=== PATIENT | male | born 1950 | race Caucasian/White ===

== ENCOUNTER 2016-11-19 10:14 | Inpatient (IN) ==
[2016-11-19] MEDS ORDERED: ACETAMINOPHEN 325 MG TABLET PO ONE (10:47)
[2016-11-19] MEDS ORDERED: LIDOCAINE JEL 2% 1 TUBE 30GM TOPICAL ONE ×2 (10:54→14:18)
[2016-11-19] MEDS ORDERED: LIDOCAINE 2% URO-JET 5 ML JEL.PF.APP UR ONE ×2 (10:54→14:13)
--- NOTE | 2016-11-19 10:55 | Emergency Department Note ---
Weakness HPI <Rosendo Olivares R - Last Filed: 11/19/16 11:16> - General Source: EMS Mode of arrival: EMS Limitations: no limitations <Christal Murray - Last Filed: 11/19/16 14:16> - General Chief complaint: Weakness Stated complaint: Weakness Time Seen by Provider: 11/19/16 10:25 - History of Present Illness HPI Narrative: 65 year old male presents with global weakness x1 day. He was brought in by EMS. He states he has had increased frequency of urination and incontinence last night and today. He has had BPH and a TURP twice in the past. He denies abdominal pain and states the weakness is global. He is diabetic. He only takes Metformin and Gabapentin. He has pain in his right shoulder with movement and his neck is stiff as well. He denies shortness of breath. He has some chest tightness at times. No hx of [place] or CHF. He is unable to sit forward on exam. He also states he has more swelling in his legs. He denies falls. (Christal Murray) - Related Data Home Medications Medication Instructions Recorded Confirmed blood sugar diagnostic strips See Dose Instructions .ROUTE 01/03/15 07/19/16 .MEDSUPPLY compression stocking thigh medium NOTAPPLIC 01/03/15 07/19/16 lancets 28 gauge See Dose Instructions .ROUTE 01/03/15 07/19/16 .MEDSUPPLY metformin 500 mg tablet 500 mg PO BID tab 01/03/15 07/19/16 pravastatin 20 mg tablet 20 mg PO QHS tab 01/03/15 07/19/16 Gluc Pérez Dipo Ch/Darren Pérez/C/Tristin 1 each PO QDAY 01/16/15 07/19/16 [Glucosamine Chondroitin Caplet] omega-3 fatty acids-fish oil 2 cap PO QDAY 02/05/15 07/19/16 ferrous sulfate 325 mg (65 mg 325 mg PO QDAY 02/27/16 07/19/16 iron) tablet Previous Rx's Medication Instructions Recorded tamsulosin 0.4 mg capsule 0.4 mg PO Q24H #30 cap 02/27/16 Allergies Allergy/AdvReac Type Severity Reaction Status Date / Time tolterodine [From Detrol] Allergy Unknown Unknown Verified 07/19/16 13:21 Review of Systems All systems ED: reviewed and negative except as stated. <Christal Murray - Last Filed: 11/19/16 14:16> Past Medical History - Past Medical History Medical history: Reports: diabetes, other (obesity) Surgical history ED: Reports: prostatectomy (TURP) Psychiatric history: Reports: no psych history Family history: Reports: non-contributory - Social History smoking status: Former smoker Alcohol use: Reports: None Drug use: Reports: none <Christal Murray - Last Filed: 11/19/16 14:16> Physical Exam - General Limitations: no limitations General appearance: alert, in no apparent distress - Head Head exam: atraumatic - Eye Eye exam: Present: normal appearance. Absent: conjunctival injection - ENT ENT exam: mucous membranes dry - Neck Neck exam: Present: tenderness (paraspinal muscles tender). Absent: full ROM ( pain with forward flexion) - Chest Chest inspection: Present: normal inspection, symmetric chest wall rise - Respiratory Respiratory exam: Present: normal lung sounds bilaterally - Cardiovascular Cardiovascular exam: Present: regular rate, normal heart sounds - Abdominal Exam Abdominal exam: Present: soft, normal bowel sounds. Absent: tenderness - Extremities Exam Extremities exam: Present: other (right shoulder pain with ROM. Nontender to palpation. Full ROM) - Neurological Exam Neurological exam: Present: alert, oriented X3, CN II-XII intact - Psychiatric Psychiatric exam: Present: normal affect, normal mood - Skin Skin exam: Present: warm, dry, intact <Christal Murray - Last Filed: 11/19/16 14:16> Course - Reevaluation(s) Time: 10:55 <Rosendo Olivares - Last Filed: 11/19/16 11:16> <Christal Murray - Last Filed: 11/19/16 14:16> Course Narrative: 800mL out on straight catheter. Patient unsteady and dizzy when trying to ambulate. Dr. Suarez was consulted and will admit the patient (Christal Murray) - Reevaluation(s) Reevaluation #1: Patient seen and examined with PA. Patient appears clinically dry, suspect early urosepsis. Case discussed with PA, labs ordered including cultures, early antibiotics, postop void US and IVF bolus (Rosendo Olivares) Vital Signs Temperature 100.6 F H 11/19/16 10:14 Pulse Rate 79 11/19/16 10:14 Respiratory Rate 18 11/19/16 10:14 Blood Pressure 136/70 11/19/16 10:14 Pulse Oximetry (%) 96 11/19/16 10:14 Temperature 102 F H 11/19/16 11:40 Pulse Rate 80 11/19/16 13:32 Respiratory Rate 18 11/19/16 13:32 Blood Pressure 124/69 11/19/16 13:32 Pulse Oximetry (%) 100 11/19/16 13:32 Weakness - Lab Data Result diagrams: 11/19/16 10:50 11/19/16 10:50 <Rosendo Olivares R - Last Filed: 11/19/16 11:16> - Lab Data Lab results reviewed: Yes I reviewed the patient's lab results. Result diagrams: 11/19/16 10:50 11/19/16 10:50 - Radiology Data Radiology results reviewed: Yes I reviewed the patient's radiology results. <Murray,Christal - Last Filed: 11/19/16 14:16> - Lab Data Lab Results 11/19/16 11/19/16 11/19/16 Range/Units 10:50 10:50 10:50 WBC 17.2 H (4.5-11.0) K/mcL RBC 4.70 (4.50-5.90) M/mcL Hgb 14.6 (13.5-16.5) g/dL Hct 43.8 (41.0-55.0) % MCV 93.4 (80.0-100.0) fL MCH 31.2 (26.0-34.0) pg MCHC 33.4 (31.0-36.0) g/dL RDW 14.7 H (11.5-14.5) % Plt Count 248 (140-440) K/mcL MPV 10.6 H (7.4-10.4) fL Total Counted 100 Seg Neutrophils % 76 (38-78) % Band Neutrophils % Not Reportable Lymphocytes % 16 (15-49) % Monocytes % (Manual) 6 (1-12) % Eosinophils % (Manual) 1 (0-7) % Myelocytes % 1 H (0-0) % Platelet Estimate Normal (NORMAL) RBC Morphology Normal (NORMAL) ABG Methemoglobin 0.3 L (0.4-1.5) % VBG pH 7.34 (7.32-7.42) U VBG pCO2 50.9 (41.0-51.0) mmHg VBG pO2 35 (25-40) mmHg VBG HCO3 26.8 (24.0-28.0) mmol/L VBG Total CO2 28.4 (25.0-29.0) mmol/L VBG O2 Saturation 59.6 (40.0-70.0) % VBG Base Excess 0.3 (-2.0-2.0) VBG Lactic Acid Carboxyhemoglobin 4.0 H (0.0-1.5) % THgb Total Hemoglobin 14.3 (13.5-16.5) gm/dL O2 Delivery Level Not Reportable Sodium 135 (133-145) mmol/L Potassium 4.2 (3.3-5.1) mmol/L Chloride 98 (96-108) mmol/L Carbon Dioxide 24 (22-30) mmol/L Anion Gap 13.0 (8-16) BUN 15 (8-23) mg/dl Creatinine 1.2 (0.7-1.2) mg/dl GFR Calculation 63 Glucose 140 H (70-105) mg/dL Calcium 8.9 (8.6-10.4) mg/dl Total Bilirubin 1.4 H (0.0-1.0) mg/dL AST 11 (0-37) U/l ALT 14 (0-40) U/l Alkaline Phosphatase 49 (39-117) U/L Total Protein 7.1 (5.9-8.4) gm/dL Albumin 4.0 (3.2-5.2) gm/dL Globulin 3.1 (2.2-3.7) gm/dL Albumin/Globulin Ratio 1.3 (1.0-2.3) Urine Color Urine Appearance Urine pH (5.0-9.0) Ur Specific [place] (1.000-1.035) Urine Protein (NEG) mg/dL Urine Glucose (UA) (NEG) mg/dL Urine Ketones (NEG) mg/dL Urine Occult Blood (<0.03) mg/dL Urine Nitrate (NEG) Urine Bilirubin (NEG) mg/dL Urine Urobilinogen (NEG) mg/dL Ur Leukocyte Esterase (NEG) /uL Urine RBC (0-1) /hpf Urine WBC (0-4) /hpf Ur Squamous Epith Cells (0-4) /hpf Urine Bacteria (0) /hpf Urine Mucus (0) /hpf Ur Culture Indicated? 11/19/16 11/19/16 11/19/16 Range/Units 10:50 11:52 11:55 WBC (4.5-11.0) K/mcL RBC (4.50-5.90) M/mcL Hgb (13.5-16.5) g/dL Hct (41.0-55.0) % MCV (80.0-100.0) fL MCH (26.0-34.0) pg MCHC (31.0-36.0) g/dL RDW (11.5-14.5) % Plt Count (140-440) K/mcL MPV (7.4-10.4) fL Total Counted Seg Neutrophils % (38-78) % Band Neutrophils % Lymphocytes % (15-49) % Monocytes % (Manual) (1-12) % Eosinophils % (Manual) (0-7) % Myelocytes % (0-0) % Platelet Estimate (NORMAL) RBC Morphology (NORMAL) ABG Methemoglobin (0.4-1.5) % VBG pH (7.32-7.42) U VBG pCO2 (41.0-51.0) mmHg VBG pO2 (25-40) mmHg VBG HCO3 (24.0-28.0) mmol/L VBG Total CO2 (25.0-29.0) mmol/L VBG O2 Saturation (40.0-70.0) % VBG Base Excess (-2.0-2.0) VBG Lactic Acid TNP 1.1 Carboxyhemoglobin (0.0-1.5) % THgb Total Hemoglobin (13.5-16.5) gm/dL O2 Delivery Level Sodium (133-145) mmol/L Potassium (3.3-5.1) mmol/L Chloride (96-108) mmol/L Carbon Dioxide (22-30) mmol/L Anion Gap (8-16) BUN (8-23) mg/dl Creatinine (0.7-1.2) mg/dl GFR Calculation Glucose (70-105) mg/dL Calcium (8.6-10.4) mg/dl Total Bilirubin (0.0-1.0) mg/dL AST (0-37) U/l ALT (0-40) U/l Alkaline Phosphatase (39-117) U/L Total Protein (5.9-8.4) gm/dL Albumin (3.2-5.2) gm/dL Globulin (2.2-3.7) gm/dL Albumin/Globulin Ratio (1.0-2.3) Urine Color Yellow Urine Appearance Hazy Urine pH 7.0 (5.0-9.0) Ur Specific [place] 1.013 (1.000-1.035) Urine Protein 30 A (NEG) mg/dL Urine Glucose (UA) Negative (NEG) mg/dL Urine Ketones Neg (NEG) mg/dL Urine Occult Blood Neg (<0.03) mg/dL Urine Nitrate Neg (NEG) Urine Bilirubin Neg (NEG) mg/dL Urine Urobilinogen 2.0 A (NEG) mg/dL Ur Leukocyte Esterase 75 A (NEG) /uL Urine RBC 2 H (0-1) /hpf Urine WBC 44 H (0-4) /hpf Ur Squamous Epith Cells < 1 (0-4) /hpf Urine Bacteria Few A (0) /hpf Urine Mucus Few (0) /hpf Ur Culture Indicated? Yes - Radiology Data Negative for pneumonia (Christal Murray) Disposition <Rosendo Olivares - Last Filed: 11/19/16 11:16> <Christal Murray - Last Filed: 11/19/16 14:16> Clinical Impression: Urinary tract infection Disposition: Xfer As Inpt ([facility]) Condition: Fair Referrals: Tosha Vaca MD [Primary Care Provider] -
[2016-11-19] MEDS ORDERED: 0.9 % SODIUM CHLORIDE 1,000 ML IV ONE ×2 (10:57→12:08)
--- NOTE | 2016-11-19 11:07 | XRay Report ---
CLINICAL INFORMATION: Weakness. Fever. TECHNIQUE: Upright AP portable chest x-ray COMPARISON: 12/09/2015 FINDINGS: Suboptimal examination due to portable technique and patient obesity No focal pulmonary parenchymal infiltrate or mass. Heart size and vascularity are normal. No pulmonary edema. No pulmonary congestion. Daisy and mediastinum are negative. No detectable pleural fluid IMPRESSION: Negative AP portable chest x-ray Interpreted and Authenticated by: Francisco Javier Joy 11/19/16
[2016-11-19 11:20] LABS: ABG Methemoglobin 0.3 % (0.4-1.5); VBG Base Excess 0.3 (-2.0-2.0); VBG HCO3 26.8 mmol/L (24.0-28.0); VBG Oxygen Saturation 59.6 % (40.0-70.0); VBG PCO2 50.9 mmHg (41.0-51.0); VBG PH 7.34 U (7.32-7.42); VBG PO2 35 mmHg (25-40); VBG Total CO2 28.4 mmol/L (25.0-29.0)
[2016-11-19 11:23] LABS: Mean Cell Volume 93.4 fL (80.0-100.0); Mean Corpuscular HGB Conc 33.4 g/dL (31.0-36.0); Mean Corpuscular Hemoglobin 31.2 pg (26.0-34.0); Platelet Count 248 K/mcL (140-440); Red Cell Distribution Width 14.7 % (11.5-14.5)
[2016-11-19 11:44] LABS: ALT/SGPT 14 U/l (0-40); Albumin/Globulin Ratio 1.3 (1.0-2.3); Alkaline Phosphatase 49 U/L (39-117); Blood Urea Nitrogen 15 mg/dl (8-23)
[2016-11-19] MEDS ORDERED: cefTRIAXone 1 GM in DEXTROSE 5% IN WATER 50 ML IV ONE ×2 (11:44→16:02)
[2016-11-19 11:57] LABS: Eosinophils % (Manual) 1 % (0-7); Lymphocytes % 16 % (15-49); Monocytes % (Manual) 6 % (1-12); Myelocytes % 1 % (0-0); Platelet Estimate NORMAL (NORMAL); RBC Morphology NORMAL (NORMAL); Segmented Neutrophils % 76 % (38-78)
[2016-11-19] MEDS ORDERED: IBUPROFEN 800 MG TABLET PO ONE (12:07)
[2016-11-19] MEDS ORDERED: IBUPROFEN 200 MG TABLET PO ONE (12:18)
[2016-11-19] MEDS ORDERED: IBUPROFEN 600 MG TABLET PO ONE (12:18)
[2016-11-19 13:15] LABS: Appearance,Urine HAZY; Bacteria,Urine FEW /hpf (0); Bilirubin,Urine NEG (NEG); Color,Urine YELLOW; Glucose,Urine (UA) NEGATIVE (NEG); Leukocyte Esterase,Urine 75 /uL (NEG); Mucus,Urine FEW /hpf (0); Nitrate,Urine NEG (NEG); Protein,Urine 30 mg/dL (NEG); Specific Gravity,Urine 1.013 (1.000-1.035); Urine Blood NEG mg/dL (<0.03); Urine RBC 2 /hpf (0-1); Urine Squamous Epithelial Cell < 1 /hpf (0-4); Urine WBC 44 /hpf (0-4)
[2016-11-19] MEDS ORDERED: NALOXONE HCL 0.4 MG/ML VIAL IV PRN (14:57)
[2016-11-19] MEDS ORDERED: DEXTROSE 50% 50 ML VIAL IV PRN (14:57)
[2016-11-19] MEDS ORDERED: ONDANSETRON 4 MG/2 ML VIAL IV PRN (14:57)
[2016-11-19] MEDS ORDERED: MAGNESIUM HYDROXIDE 30 ML ORAL.SUSP PO PRN (14:57)
[2016-11-19] MEDS ORDERED: IPRATROPIUM/ALBUTEROL 3 ML AMPUL.NEB NEB PRN (14:57)
[2016-11-19] MEDS ORDERED: oxyCODONE HCL 5 MG TABLET PO PRN (14:57)
[2016-11-19] MEDS ORDERED: 0.9 % SODIUM CHLORIDE 1,000 ML IV SCH (15:15)
--- NOTE | 2016-11-19 15:45 | Internal Med History&Physical ---
Medical - H&P: HPI Patient information: Note initiated : 11/19/16 at 3:35 pm Service Date, if different from initiated Date: [] Patient: Edy Navarro a 65 y/o M admitted on 11/19/16 for Weakness. Chief Complaint: [] History of present illness: Mr. Navarro is a 65 year old male with h/o dm, obesity, daniella, presents to the ER with complaints of weakness x 1 day The patient has h/p bph, h/o need for intermittent self cath by self, he had laser photo vaporization by Dr Green, approx 6 months ago and since then has not had any major issues, accoriding to july note the patient was voiding ok and his post void residue was 0. Patient had stopped the flomax at that visit. Yesterday the patient noted that he was weak and unable to do much, this AM he was more weak and also had subective sensation of fevers. He noted that since a couple of nights he has not been able to pass urine well, he did not pass urine yesterday and then leaked urine in the bed last night. He deneis any cough, or shortness of breath, any blood in the urine, or any other symptom. In the ER his workup showed a wbc of 17K, hb 14, plat 248, basic panel ok, tim 1.4, cxr clear, ua abnl, leuk esterase positive, ekg sinus, with poor r wave progression, lad possible lafb, no change from previous. normal lacate, and he was febrile to 102 He was given some fluids and a 1gm of rocephin and admitted to the hospital for further management. Review of systems: CONSTITUTIONAL: No weight loss, ,. PResent fever, weakness and fatigue HEENT: Eyes: No visual loss, blurred vision, double vision or yellow sclerae. Ears, Nose, Throat: No hearing loss, sneezing, congestion, runny nose or sore throat. SKIN: No rash or itching. CARDIOVASCULAR: No chest pain, chest pressure or chest discomfort. No palpitations or edema. RESPIRATORY: No shortness of breath, cough or sputum. GASTROINTESTINAL: No nausea, vomiting or diarrhea or constipation. No abdominal pain or blood in stools No Mary. GENITOURINARY: urinary retention and incontinence reported. NEUROLOGICAL: No headache, dizziness, syncope, paralysis, tremors, numbness or tingling in the extremities. No change in bowel or bladder control. MUSCULOSKELETAL: No muscle, back pain, joint pain or stiffness. HEMATOLOGIC: No bleeding or bruising. No enlarged nodes PSYCHIATRIC: No depression or anxiety. ENDOCRINOLOGIC: No reports of sweating, cold or heat intolerance. No polyuria or polydipsia. ALLERGIES: No hives, eczema or rhinitis. Skin: No rash, no jaundice, cyanosis or pallor. Medical - H&P: [facility] Medical history: Medical History (Last Updated 11/19/16 @ 13:30 by Christal Murray PA-C) Apnea (Chronic) History of urinary tract infection (Chronic) Restless leg syndrome (Chronic) Diabetes mellitus, type II (Chronic) Edema (Chronic) Fungal infection (Chronic) Glaucoma (Chronic) Hyperlipidemia, mixed (Chronic) Hypertension (Chronic) Hypertrophy of prostate with urinary obstruction (Chronic 09/23/14) Hypokalemia (Chronic) Obesity (Chronic) Benign localized hyperplasia of prostate with urinary obstruction (Chronic) Pain in joint, shoulder region (Chronic) Osteoarthrosis, ankle and foot (Chronic) History of continuous positive airway pressure (CPAP) dependence (Chronic) UTI (urinary tract infection) (Chronic) E. coli infection (Chronic) Surgical history: Past Surgical History (Last Updated 09/30/16 @ 14:09 by [place]) History of toe surgery (Chronic) History of knee surgery (Chronic) S/P surgical manipulation of ankle joint (Chronic) History of photovaporization of prostate (Chronic 01/21/15) Pertinent family history: Family History Father Cardiac disease Malignant neoplasm Unknown Type 2 diabetes mellitus Social history: lives with , non smoker occasional etoh no drug use reported. Medical - H&P: Meds Home Medications Medication Instructions Recorded Confirmed Type blood sugar diagnostic strips See Dose Instructions .ROUTE 01/03/15 11/19/16 History .MEDSUPPLY compression stocking thigh medium 0 applic NOTAPPLIC DAILY 01/03/15 11/19/16 History lancets 28 gauge See Dose Instructions .ROUTE 01/03/15 11/19/16 History .MEDSUPPLY metformin 500 mg tablet 500 mg PO BID tab 01/03/15 11/19/16 History Gluc Pérez Dipo Ch/Darren Pérez/C/Tristin 1 each PO QDAY 01/16/15 11/19/16 History [Glucosamine Chondroitin Caplet] omega-3 fatty acids-fish oil 2 cap PO QDAY 02/05/15 11/19/16 History tamsulosin 0.4 mg capsule 0.4 mg PO Q24H #30 cap 02/27/16 11/19/16 Rx Allergies Allergy/AdvReac Type Severity Reaction Status Date / Time tolterodine [From Detrol] Allergy Unknown Other Verified 11/19/16 15:26 Medical - H&P: Exam - Constitutional Vitals: Temp Pulse Resp BP Pulse Ox 102 F H 80 16 120/64 95 11/19/16 11:40 11/19/16 13:49 11/19/16 14:32 11/19/16 14:32 11/19/16 13:49 Exam: GENERAL: The patient is a well-developed, well-nourished in no apparent distress. Is alert and oriented x3. VITAL SIGNS: Reviewed and as noted elsewhere. HEENT: Head is normocephalic and atraumatic. Extraocular muscles are intact. Pupils are equal, round, and reactive to light. Nares appeared normal. Mouth appears any without lesions. Mucous membranes are dry. NECK: Normal to inspection, Supple, No lymphadenopathy or thyromegaly. LUNGS: Air entry equal on both sides, no wheezing, crackles or rhonchi noted. No accessory muscles of respiration HEART: Regular rate and rhythm normal, S1 and S2 heard, no Gallop, S3 or Rub Noted, No Gross murmur heard. ABDOMEN: Soft, nontender, and nondistended. Positive bowel sounds. No hepatosplenomegaly was noted. large pannus, no cva tenderness. EXTREMITIES: No cyanosis, clubbing, rash, lesions or edema. NEUROLOGIC: Cranial nerves II through XII are grossly intact. Motor and Sensory System Grossly Intact PSYCHIATRIC: Normal affect, Normal Mood. Appropriate Behavior. SKIN: No ulceration or wounds noted, No jaundice, No rash noted. Medical - H&P: Reslt - Labs CBC & Chem 7: 11/19/16 10:50 11/19/16 10:50 Medical - H&P: A/P - Narrative A/P Narrative: A/P Sepsis : Due to UTI, BP stable, lactic acid is normal, IV fluids for now, treat UTI UTI: await culture, treat with rocephin, no cva tenderness, Get UGS renal to look for any obvious pathology. Urinary retention/ BPH: Discussed with Dr Green, resume flomax bid, pt will need to have negrete in place and voiding trial in the urology clinc DM: MOnitor fs, hold home meds sliding scale isulin for now. DANIELLA: cpap at night, he notes he uses 20 cms of h2o pressure, advised to see if he can get his own device. DVT hep sq Diet diabetic Full code.
[2016-11-19] MEDS: TAMSULOSIN 0.4 MG CAPSULE PO SCH (16:11)
[2016-11-19] MEDS: INSULIN LISPRO 1 UNIT/0.01 ML UNIT SQ SCH ×2 (16:13→21:23)
--- NOTE | 2016-11-19 16:44 | Ultrasound Report ---
CLINICAL INFORMATION: Urinary tract infection. Diabetes. Previous prostate surgery. TECHNIQUE: Grayscale and color flow Doppler spectral imaging COMPARISON: None. FINDINGS: Right kidney measures 14.1 x 7.0 x 6.4 cm. There are multiple renal cysts. There are least four cysts. The largest cyst is made pole and lateral and measures 9.1 x 9.4 x 10.2 cm. No solid mass. No hydronephrosis. No detectable calculi. Renal cortex appears somewhat echogenic consistent with medical renal disease. Left kidney measures 14.6 x 6.7 x 5.5 cm. There are multiple renal cysts. Largest cyst is upper pole and measures 6.1 x 6.0 x 5.5 cm. No detectable solid mass. No hydronephrosis. No detectable calculi. Renal cortex appears somewhat echogenic consistent with medical renal disease. There is a Dietz catheter within the urinary bladder. Estimated prostatic volume measures 54 mL IMPRESSION: 1. Multiple renal cysts 2. No hydronephrosis. No detectable calculi 3. Renal cortex appears somewhat echogenic bilaterally consistent with medical renal disease. Interpreted and Authenticated by: Francisco Javier Joy 11/19/16
[2016-11-19] MEDS: 0.9 % SODIUM CHLORIDE 1,000 ML IV SCH ×2 (17:08→20:00)
[2016-11-19] MEDS ORDERED: TAMSULOSIN 0.4 MG CAPSULE PO SCH (21:00)
[2016-11-19] MEDS: 0.9 % SODIUM CHLORIDE 10 ML SYRINGE IV SCH (21:32)
[2016-11-19] MEDS: HEPARIN 5,000 UNIT/ML VIAL SQ SCH (21:32)
[2016-11-20] MEDS: TAMSULOSIN 0.4 MG CAPSULE PO SCH ×3 (00:07→20:35)
[2016-11-20] MEDS: 0.9 % SODIUM CHLORIDE 1,000 ML IV SCH ×4 (05:13→20:30)
[2016-11-20] MEDS: 0.9 % SODIUM CHLORIDE 10 ML SYRINGE IV SCH ×3 (05:13→20:40)
[2016-11-20 05:54] LABS: Basophils # (Auto) 0.1 K/mcL (0.0-0.3); Basophils % (Auto) 0.3 % (0.0-2.0); Eosinophils # (Auto) 0 K/mcL (0.0-0.7); Eosinophils % (Auto) 0.3 % (0.0-7.0); Granulocytes % (Auto) 82.6 % (38.0-78.0); Lymphocytes # (Auto) 1.6 K/mcL (1.5-4.8); Lymphocytes % (Auto) 9.4 % (15.5-49.0); Mean Cell Volume 94.2 fL (80.0-100.0); Mean Corpuscular HGB Conc 33.1 g/dL (31.0-36.0); Mean Corpuscular Hemoglobin 31.2 pg (26.0-34.0); Monocytes # (Auto) 1.2 K/mcL (0.1-0.9); Monocytes % (Auto) 7.4 % (1.0-12.0); Platelet Count 212 K/mcL (140-440); RBC 4.33 M/mcL (4.50-5.90); Red Cell Distribution Width 14.8 % (11.5-14.5)
[2016-11-20 06:12] LABS: ALT/SGPT 14 U/l (0-40); Albumin 3.5 gm/dL (3.2-5.2); Albumin/Globulin Ratio 1.2 (1.0-2.3); Alkaline Phosphatase 44 U/L (39-117); Bilirubin,Direct 0.3 mg/dL (0.0-0.3); Blood Urea Nitrogen 13 mg/dl (8-23); Gamma Glutamyl Transpeptidase 20 U/L (8-61); Magnesium 1.8 mg/dL (1.6-2.5); Uric Acid 5.9 mg/dL (2.5-8.0)
[2016-11-20] MEDS: INSULIN LISPRO 1 UNIT/0.01 ML UNIT SQ SCH ×4 (07:26→20:40)
[2016-11-20] MEDS: ACETAMINOPHEN 325 MG TABLET PO PRN ×3 (07:30→20:44)
[2016-11-20] MEDS: FISH OIL 1,000 MG CAPSULE PO SCH (07:31)
[2016-11-20] MEDS: HEPARIN 5,000 UNIT/ML VIAL SQ SCH ×2 (07:31→20:35)
[2016-11-20] MEDS: GLUCOSAMINE/CHONDROITIN SULF A 1 CAP CAPSULE PO SCH (07:31)
[2016-11-20] MEDS ORDERED: cefTRIAXone 1 GM in DEXTROSE 5% IN WATER 50 ML IV SCH (09:00)
[2016-11-20] MEDS: cefTRIAXone 2 GM in DEXTROSE 5% IN WATER 50 ML IV SCH (09:09)
--- NOTE | 2016-11-20 11:22 | Internal Med Progress Note ---
Medical - PN: Subj Patient information: Note initiated : 11/20/16 at 11:20 am Service Date, if different from initiated Date: [] Patient: Edy Navarro a 65 y/o M admitted on 11/19/16 for Weakness. Chief Complaint: [] Interval history: Mr. Navarro is a 65 year old male with h/o dm, obesity, daniella, presents to the ER with complaints of weakness x 1 day The patient has h/p bph, h/o need for intermittent self cath by self, he had laser photo vaporization by Dr Rossi, approx 6 months ago and since then has not had any major issues, accoriding to july note the patient was voiding ok and his post void residue was 0. Patient had stopped the flomax at that visit. Yesterday the patient noted that he was weak and unable to do much, this AM he was more weak and also had subective sensation of fevers. He noted that since a couple of nights he has not been able to pass urine well, he did not pass urine yesterday and then leaked urine in the bed last night. He deneis any cough, or shortness of breath, any blood in the urine, or any other symptom. In the ER his workup showed a wbc of 17K, hb 14, plat 248, basic panel ok, tim 1.4, cxr clear, ua abnl, leuk esterase positive, ekg sinus, with poor r wave progression, lad possible lafb, no change from previous. normal lacate, and he was febrile to 102 He was given some fluids and a 1gm of rocephin and admitted to the hospital for further management. 11/20: Pt seen examined, no acute overnight events, tolerating po ok, but still feels weak wbc improved but not much, no other issues. He was able to participate in PT discussed pt with Dr rossi, to continue flomax bid and void trial in clinc in 2 weeks. continue to treat infection. Pertinent ROS: Denies headache, dizziness Denies chest pain, palpitations Denies cough or shortness of breath Denies abdominal pain, nausea or vomiting. - Constitutional Vitals: Vital Signs Temp Pulse Resp BP Pulse Ox 97.1 F 58 L 20 119/58 93 11/20/16 11:17 11/20/16 08:00 11/20/16 11:11/20/16 11:17 11/20/16 11:17 Period Temp Pulse Resp BP Sys/Mayes Pulse Ox Last 24 Hr 97.0 F-97.6 F 58-87 20-20 119-135/58-75 93-97 Intake and Output 11/19/16 11/20/16 11/20/16 21:59 05:59 13:59 Intake Total 1550 / 1550 400 / 400 1120 / 1120 Output Total 2100 / 2100 800 / 800 Balance -550 / -550 -400 / -400 1120 / 1120 Weight 355 lb Intake & Output: Intake & Output 11/19/16 11/20/16 11/20/16 21:59 05:59 13:59 Intake Total 1550 / 1550 400 / 400 1120 / 1120 Output Total 2100 / 2100 800 / 800 Balance -550 / -550 -400 / -400 1120 / 1120 Weight 355 lb Intake: IV 1000 / 1000 1000 / 1000 Sodium Chloride 0.9% 1, 1000 / 1000 1000 / 1000 000 ml @ 84 mls/hr IV . [id number] [facility] Rx#:[id number] Oral 550 / 550 400 / 400 120 / 120 Output: Urine Catheter Amount 500 / 500 Void Amount 1600 / 1600 800 / 800 Other: Meal Dinner Breakfast Percent of Meal Consumed 100% 100% Feeding Ability Independent # Bowel Movements 1 Exam: Constitutional; Afebrile, cooperative, alert, not in distress. morbidly obese. Eyes- No icterus, , No periorbital swelling Ears- Ext ear normal, hearing normal to conversation. Neck- Midline trachea, supple Respiratory system: Air Entry equal on both sides, No crackles or wheezing, no rhonchi. CVS- Rate rhythm regular, S1,S2 heard, no gallop, no rub. 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 Medical - PN: Obj Da - Labs CBC & Chem 7: 11/20/16 04:47 11/20/16 04:47 Labs: Abnormal Lab Results 11/20/16 11/20/16 04:47 04:47 WBC 16.9 H RBC 4.33 L Hct 40.8 L RDW 14.8 H MPV 10.6 H Gran % 82.6 H Lymph % (Auto) 9.4 L Gran # 14.0 H [place] # (Auto) 1.2 H Carbon Dioxide 20 L Glucose 144 H Calcium 8.5 L Phosphorus 2.3 L Total Bilirubin 1.3 H Meds: Medications Acetaminophen (Tylenol) 650 mg PO Q6HP PRN PRN Reason: PAIN/FEVER > 101 Last Admin: 11/20/16 07:30 Dose: 650 mg Albuterol/Ipratropium (Duoneb) 3 ml NEB Q4HRT PRN PRN Reason: Shortness Of Breath Or Wheezing Dextrose (Dextrose 50%) 0 ml IV UD PRN PRN Reason: Hypoglycemia Diagnostic Test (Pha) (Accu-Chek) 1 each FS [facility] Last Admin: 11/20/16 07:25 Dose: 1 each Fish Oil (Fish Oil) 2,000 mg PO DAILY [facility] Last Admin: 11/20/16 07:31 Dose: 2,000 mg Glucosamine/Chondroitin (Glucosamine-Chondroitin Cap) 1 cap PO DAILY [facility] Last Admin: 11/20/16 07:31 Dose: 1 cap Heparin Sodium (Porcine) (Heparin) 5,000 unit SQ Q12 [facility] Last Admin: 11/20/16 07:31 Dose: 5,000 unit Sodium Chloride (Sodium Chloride 0.9%) 1,000 mls @ 84 mls/hr IV .[id number] [facility] Stop: 11/21/16 02:39 Last Admin: 11/20/16 09:12 Dose: 84 mls/hr Ceftriaxone Sodium 2 gm/ (Dextrose) 50 mls @ 100 mls/hr IV DAILY [facility] [place] Last Admin: 11/20/16 09:09 Dose: 100 mls/hr Insulin Human Lispro (Humalog) 0 unit SQ [facility] PRN Reason: Protocol Last Admin: 11/20/16 07:26 Dose: Not Given Magnesium Hydroxide (Milk Of Magnesia) 30 ml PO DAILYP PRN PRN Reason: Constipation Naloxone HCl (Narcan) 0.1 mg IV Q2MIN PRN PRN Reason: Opiate Reversal Ondansetron HCl (Zofran) 4 mg IV Q6HP PRN PRN Reason: Nausea And Vomiting Oxycodone HCl (Roxicodone) 5 mg PO Q4HP PRN PRN Reason: Pain Sodium Chloride (Saline Flush) 10 ml IV Q8 [facility] Last Admin: 11/20/16 05:13 Dose: Not Given Tamsulosin HCl (Flomax) 0.4 mg PO BID JAMES Last Admin: 11/20/16 07:30 Dose: 0.4 mg Medical - PN: A/P - Time Spent With Patient Total time spent is greater than 50% in coordination of care (as documented) at patient's floor/unit and/or counseling patient: - Narrative A/P Narrative: A/P Narrative: Sepsis : Due to UTI, BP stable, lactic acid is normal, on iv fluids, clinically improving. UTI: await culture, treat with 2 g rocephin, no cva tenderness, renal usg is negative. Urinary retention/ BPH: Discussed with Dr Rossi, resume flomax bid, pt will need to have negrete in place and voiding trial in the urology clinc DM: MOnitor fs, hold home meds sliding scale isulin for now. glucose stable. DANIELLA: cpap at night, he notes he uses 20 cms of h2o pressure, advised to see if he can get his own device. DVT hep sq Diet diabetic Full code. Medical - PN: Qual - Stroke Symptom Onset Unknown: No - VTE Deep Vein Thrombosis/Pulmonary Embolism Present on Admission: No
[2016-11-21] MEDS: 0.9 % SODIUM CHLORIDE 10 ML SYRINGE IV SCH ×3 (05:33→21:13)
[2016-11-21 06:06] LABS: Basophils # (Auto) 0 K/mcL (0.0-0.3); Basophils % (Auto) 0.3 % (0.0-2.0); Eosinophils # (Auto) 0.3 K/mcL (0.0-0.7); Granulocytes % (Auto) 73.1 % (38.0-78.0); Lymphocytes # (Auto) 1.9 K/mcL (1.5-4.8); Lymphocytes % (Auto) 16.6 % (15.5-49.0); Mean Cell Volume 94.6 fL (80.0-100.0); Mean Corpuscular HGB Conc 33.3 g/dL (31.0-36.0); Mean Corpuscular Hemoglobin 31.5 pg (26.0-34.0); Monocytes # (Auto) 0.8 K/mcL (0.1-0.9); Platelet Count 212 K/mcL (140-440); Red Cell Distribution Width 14.9 % (11.5-14.5)
[2016-11-21 06:29] LABS: ALT/SGPT 13 U/l (0-40); Albumin 3.3 gm/dL (3.2-5.2); Albumin/Globulin Ratio 1.1 (1.0-2.3); Alkaline Phosphatase 41 U/L (39-117); Bilirubin,Direct < 0.2 mg/dL (0.0-0.3); Blood Urea Nitrogen 13 mg/dl (8-23); Gamma Glutamyl Transpeptidase 21 U/L (8-61); Magnesium 1.9 mg/dL (1.6-2.5); Uric Acid 5.5 mg/dL (2.5-8.0)
[2016-11-21] MEDS: GLUCOSAMINE/CHONDROITIN SULF A 1 CAP CAPSULE PO SCH (09:15)
[2016-11-21] MEDS: HEPARIN 5,000 UNIT/ML VIAL SQ SCH ×2 (09:15→20:27)
[2016-11-21] MEDS: TAMSULOSIN 0.4 MG CAPSULE PO SCH ×2 (09:15→20:27)
[2016-11-21] MEDS: cefTRIAXone 2 GM in DEXTROSE 5% IN WATER 50 ML IV SCH (09:15)
[2016-11-21] MEDS: FISH OIL 1,000 MG CAPSULE PO SCH (09:15)
[2016-11-21] MEDS: INSULIN LISPRO 1 UNIT/0.01 ML UNIT SQ SCH ×4 (09:16→20:27)
--- NOTE | 2016-11-21 13:20 | Internal Med Progress Note ---
Medical - PN: Subj Patient information: Note initiated : 11/21/16 at 1:18 pm Service Date, if different from initiated Date: [] Patient: Edy Navarro a 65 y/o M admitted on 11/19/16 for Weakness. Chief Complaint: [] Interval history: Mr. Navarro is a 65 year old male with h/o dm, obesity, daniella, presents to the ER with complaints of weakness x 1 day The patient has h/p bph, h/o need for intermittent self cath by self, he had laser photo vaporization by Dr Rossi, approx 6 months ago and since then has not had any major issues, accoriding to july note the patient was voiding ok and his post void residue was 0. Patient had stopped the flomax at that visit. Yesterday the patient noted that he was weak and unable to do much, this AM he was more weak and also had subective sensation of fevers. He noted that since a couple of nights he has not been able to pass urine well, he did not pass urine yesterday and then leaked urine in the bed last night. He deneis any cough, or shortness of breath, any blood in the urine, or any other symptom. In the ER his workup showed a wbc of 17K, hb 14, plat 248, basic panel ok, tim 1.4, cxr clear, ua abnl, leuk esterase positive, ekg sinus, with poor r wave progression, lad possible lafb, no change from previous. normal lacate, and he was febrile to 102 He was given some fluids and a 1gm of rocephin and admitted to the hospital for further management. 11/20: Pt seen examined, no acute overnight events, tolerating po ok, but still feels weak wbc improved but not much, no other issues. He was able to participate in PT discussed pt with Dr rossi, to continue flomax bid and void trial in [facility]inc in 2 weeks. continue to treat infection. 11/21: Pt seen examined, labs reviwed with him patient seems to be getting better albiet slowly, his wbc is improved, his weakness is better he denies any other complaints, tolerating po well, sleeping in bed comfortably Pertinent ROS: Denies headache, dizziness Denies chest pain, palpitations Denies cough or shortness of breath Denies abdominal pain, nausea or vomiting. - Constitutional Vitals: Vital Signs Temp Pulse Resp BP Pulse Ox 97.7 F 70 18 146/72 97 11/21/16 12:00 11/21/16 12:00 11/21/16 12:00 11/21/16 12:00 11/21/16 12:00 Period Temp Pulse Resp BP Sys/Mayes Pulse Ox Last 24 Hr 97.5 F-99.0 F 67-95 16-20 132-153/72-91 93-97 Intake and Output 11/20/16 11/21/16 11/21/16 21:59 05:59 13:59 Intake Total 949 / 949 325 / 325 1040 / 1040 Output Total 1300 / 1300 900 / 900 1400 / 1400 Balance -351 / -351 -575 / -575 -360 / -360 Weight 350 lb 8 oz Intake & Output: Intake & Output 11/20/16 11/21/16 11/21/16 21:59 05:59 13:59 Intake Total 949 / 949 325 / 325 1040 / 1040 Output Total 1300 / 1300 900 / 900 1400 / 1400 Balance -351 / -351 -575 / -575 -360 / -360 Weight 350 lb 8 oz Intake: IV 949 / 949 Sodium Chloride 0.9% 1, 949 / 949 000 ml @ 84 mls/hr IV . [id number] [facility] Rx#:[id number] Oral 325 / 325 640 / 640 GI Tube Flush 400 / 400 Output: Urine Catheter Amount 1300 / 1300 900 / 900 1400 / 1400 Other: Meal Lunch Percent of Meal Consumed 100% Feeding Ability Independent # Bowel Movements 1 1 # of times incontinent of 1 Bowels Exam: Constitutional; Afebrile, cooperative, alert, not in distress. morbidly obese Eyes- No icterus, , No periorbital swelling Ears- Ext ear normal, hearing normal to conversation. Neck- Midline trachea, supple Respiratory system: Air Entry equal on both sides, No crackles or wheezing, no rhonchi. CVS- Rate rhythm regular, S1,S2 heard, no gallop, no rub. Abdomen- Soft nontender abdomen, no organomegaly, no tenderness, no guarding or rigidity, CAUSE ANALYST- AOOx3, moving all extremities, no gross focal deficit noted. Medical - PN: Obj Da - Labs CBC & Chem 7: 11/21/16 05:05 11/21/16 05:05 Labs: Abnormal Lab Results 11/21/16 11/21/16 11/20/16 05:05 05:05 04:47 WBC 11.4 H RBC 4.10 L Hgb 12.9 L Hct 38.8 L RDW 14.9 H MPV Gran % Lymph % (Auto) Gran # 8.3 H Eddy # (Auto) Carbon Dioxide 20 L 20 L Glucose 118 H 144 H Calcium 8.3 L 8.5 L Phosphorus 2.2 L 2.3 L Total Bilirubin 1.3 H 11/20/16 04:47 WBC 16.9 H RBC 4.33 L Hgb Hct 40.8 L RDW 14.8 H MPV 10.6 H Gran % 82.6 H Lymph % (Auto) 9.4 L Gran # 14.0 H Eddy # (Auto) 1.2 H Carbon Dioxide Glucose Calcium Phosphorus Total Bilirubin Meds: Medications Acetaminophen (Tylenol) 650 mg PO Q6HP PRN PRN Reason: PAIN/FEVER > 101 Last Admin: 11/20/16 20:44 Dose: 650 mg Albuterol/Ipratropium (Duoneb) 3 ml NEB Q4HRT PRN PRN Reason: Shortness Of Breath Or Wheezing Dextrose (Dextrose 50%) 0 ml IV UD PRN PRN Reason: Hypoglycemia Diagnostic Test (Pha) (Accu-Chek) 1 each FS ACHS [facility] Last Admin: 11/21/16 12:26 Dose: 1 each Fish Oil (Fish Oil) 2,000 mg PO DAILY JAMES Last Admin: 11/21/16 09:15 Dose: 2,000 mg Glucosamine/Chondroitin (Glucosamine-Chondroitin Cap) 1 cap PO DAILY JAMES Last Admin: 11/21/16 09:15 Dose: 1 cap Heparin Sodium (Porcine) (Heparin) 5,000 unit SQ Q12 JAMES Last Admin: 11/21/16 09:15 Dose: 5,000 unit Ceftriaxone Sodium 2 gm/ (Dextrose) 50 mls @ 100 mls/hr IV DAILY [facility] Last Admin: 11/21/16 09:15 Dose: 100 mls/hr Insulin Human Lispro (Humalog) 0 unit SQ ACHS JAMSE PRN Reason: Protocol Last Admin: 11/21/16 12:27 Dose: Not Given Magnesium Hydroxide (Milk Of Magnesia) 30 ml PO DAILYP PRN PRN Reason: Constipation Last Admin: 11/21/16 09:15 Dose: 30 ml Naloxone HCl (Narcan) 0.1 mg IV Q2MIN PRN PRN Reason: Opiate Reversal Ondansetron HCl (Zofran) 4 mg IV Q6HP PRN PRN Reason: Nausea And Vomiting Oxycodone HCl (Roxicodone) 5 mg PO Q4HP PRN PRN Reason: Pain Sodium Chloride (Saline Flush) 10 ml IV Q8 [facility] Last Admin: 11/21/16 05:33 Dose: Not Given Tamsulosin HCl (Flomax) 0.4 mg PO BID [facility] Last Admin: 11/21/16 09:15 Dose: 0.4 mg Medical - PN: A/P - Time Spent With Patient Total time spent is greater than 50% in coordination of care (as documented) at patient's floor/unit and/or counseling patient: - Narrative A/P Narrative: A/P Narrative: Sepsis : Due to UTI, BP stable, lactic acid is normal, on iv fluids, clinically improving. UTI: treat with 2 g rocephin, ecoli sensitive to ceftriaxone, can go home on keflex. Urinary retention/ BPH: Discussed with Dr Rossi, resume flomax bid, pt will need to have negrete in place and voiding trial in the urology clinic DM: Monitor fs, hold home meds sliding scale isulin for now. glucose stable. DANIELLA: cpap at night, he notes he uses 20 cms of h2o pressure, advised to see if he can get his own device. DVT hep sq Diet diabetic Full code. Medical - PN: Qual - Stroke Symptom Onset Unknown: No - VTE Deep Vein Thrombosis/Pulmonary Embolism Present on Admission: No
[2016-11-22] MEDS: 0.9 % SODIUM CHLORIDE 10 ML SYRINGE IV SCH (04:59)
[2016-11-22 06:21] LABS: Basophils # (Auto) 0 K/mcL (0.0-0.3); Basophils % (Auto) 0.4 % (0.0-2.0); Eosinophils # (Auto) 0.4 K/mcL (0.0-0.7); Eosinophils % (Auto) 4.3 % (0.0-7.0); Granulocytes % (Auto) 65.2 % (38.0-78.0); Lymphocytes # (Auto) 2.1 K/mcL (1.5-4.8); Lymphocytes % (Auto) 21.8 % (15.5-49.0); Mean Cell Volume 94.3 fL (80.0-100.0); Mean Corpuscular Hemoglobin 31.2 pg (26.0-34.0); Monocytes # (Auto) 0.8 K/mcL (0.1-0.9); Monocytes % (Auto) 8.3 % (1.0-12.0); Platelet Count 252 K/mcL (140-440); RBC 4.38 M/mcL (4.50-5.90); Red Cell Distribution Width 14.3 % (11.5-14.5)
[2016-11-22 06:52] LABS: ALT/SGPT 12 U/l (0-40); Albumin 3.7 gm/dL (3.2-5.2); Albumin/Globulin Ratio 1.2 (1.0-2.3); Alkaline Phosphatase 61 U/L (39-117); Bilirubin,Direct < 0.2 mg/dL (0.0-0.3); Blood Urea Nitrogen 12 mg/dl (8-23); Gamma Glutamyl Transpeptidase 24 U/L (8-61); Uric Acid 5.7 mg/dL (2.5-8.0)
[2016-11-22] MEDS: HEPARIN 5,000 UNIT/ML VIAL SQ SCH (08:42)
[2016-11-22] MEDS: FISH OIL 1,000 MG CAPSULE PO SCH (08:42)
[2016-11-22] MEDS: GLUCOSAMINE/CHONDROITIN SULF A 1 CAP CAPSULE PO SCH (08:43)
[2016-11-22] MEDS: TAMSULOSIN 0.4 MG CAPSULE PO SCH (08:43)
[2016-11-22] MEDS: INSULIN LISPRO 1 UNIT/0.01 ML UNIT SQ SCH ×2 (08:43→11:38)
[2016-11-22] MEDS ORDERED: CIPROFLOXACIN 500 MG TABLET PO SCH (09:00)
[2016-11-22] MEDS: cefTRIAXone 2 GM in DEXTROSE 5% IN WATER 50 ML IV SCH (09:21)
--- NOTE | 2016-11-22 10:27 | Discharge Summary ---
Medical - DS: Prov Patient information: Note initiated : 11/22/16 at 10:27 am Patient: Edy Navarro 65 y/o M admitted on 11/19/16 for Weakness. Date of admission: 11/19/16 14:48 Discharge date: 11/22/16 Primary care physician: Tosha Vaca Number [phone] Admitting clinician: Sadia Suarez Attending physician on discharge: Angeles Chavez Medical - DS: Meds - Discharge Medications Prescriptions: Ciprofloxacin [Cipro] 500 mg PO BID #14 tablet Tamsulosin [Flomax] 0.4 mg PO BID #60 capsule Active and Home Medications: Discharge medications: Ciprofloxacin 500 mg p.o. twice daily for 7 more days. Flomax 0.4 mg p.o. twice daily until follow-up with Dr. Green Tylenol 650 mg every 6 hours as needed Fish oil 1000 mg 2 caps daily Metformin 500 mg p.o. twice daily Gabapentin 900 mg at 7 AM and 2 PM Gabapentin 600 mg at bedtime Dietz catheter should remain in place for approximately 10 more days. Follow-up with Dr. Green for voiding trial. CPAP should be used nightly. Previous home Medications: metformin 500 mg tablet 500 mg PO BID tab 01/03/15 [History Confirmed 11/19/16 Last Taken 11/18/16] omega-3 fatty acids-fish oil 2 cap PO QDAY 02/05/15 [History Confirmed 11/19/16 Last Taken 11/18/16] was not taking tamsulosin 0.4 mg capsule 0.4 mg PO Q24H #30 cap 02/27/16 [Rx Confirmed 11/19/16 Last Taken 11/18/16] Gabapentin [Neurontin] 600 mg PO HS 11/19/16 [History Confirmed 11/19/16 Last Taken 11/18/16] Gabapentin [Neurontin] 900 mg PO BID@0700,1400 11/19/16 [History Confirmed 11/19 Last Taken 11/18/16] Medical - DS: Hosp Hospital course: Mr. Navarro is a 65 year old M November 19, 2016: History of present illness: Mr. Navraro is a 65 year old male with h/o dm, obesity, daniella, presents to the ER with complaints of weakness x 1 day . The patient has h/p bph, h/o need for intermittent self cath by self, he had laser photo vaporization by Dr Green, approx 6 months ago and since then has not had any major issues, according to july note the patient was voiding ok and his post void residue was 0. Patient had stopped the flomax at that visit. Yesterday the patient noted that he was weak and unable to do much, this AM he was more weak and also had subective sensation of fevers. He noted that since a couple of nights he has not been able to pass urine well, he did not pass urine yesterday and then leaked urine in the bed last night. He deneis any cough, or shortness of breath, any blood in the urine, or any other symptom. In the ER his workup showed a wbc of 17K, hb 14, plat 248, basic panel ok, tim 1.4, cxr clear, ua abnl, leuk esterase positive, ekg sinus, with poor r wave progression, lad possible lafb, no change from previous. normal lacate, and he was febrile to 102 He was given some fluids and a 1gm of rocephin and admitted to the hospital for further management. November 22, 2016: Hospital course: This patient was admitted with sepsis, urinary retention, UTI. He was also struggling with generalized weakness. He has not been treated with 3 days of IV antibiotics, and is feeling better. He is now ambulating with a walker in the hallway. His case was reviewed with Dr. Green, who recommended that he resume his Flomax, and keep the catheter in place for approximately 2 weeks. Afterwards, a voiding trial should be attempted. Today, the patient says he is feeling fine. He denies fever or chills, chest pain or palpitations, shortness of breath, GI symptoms. He thinks he can manage the Dietz catheter at home. Urine culture grew E. coli which is resistant to Augmentin and Bactrim, but sensitive to cephalosporins and Floxin's. -Blood pressures have continued to run a bit high, ranging from 122-159/58-97. Exam: This is an overweight white male, in no acute distress. Cardiac exam shows regular rate and rhythm. Lungs are clear to auscultation. Abdomen is markedly protuberant, but otherwise soft and nontender. Dietz catheter is draining clear yellow urine. Extremities: Show no significant edema. Neurologic exam is grossly nonfocal. Assessment and plan: #1. Sepsis : Due to UTI, resolved. #2. UTI: Treated with IV Rocephin. Patient is changed over to oral ciprofloxacin at this time. -Continue Dietz catheter for his urinary retention. Follow-up with Dr. Green in approximately 10 days. -Resume Flomax 0.4 mg p.o. twice daily. #3. DM: -Glucose has been reasonably well controlled while here. Continue metformin. Continue diabetic diet. #4. DANIELLA: cpap at night, he notes he uses 20 cms of h2o pressure, advised to see if he can get his own device. #5. DVT: Hep sq was used. #6. Full code. #7. Disposition: The patient is a little unsteady on his feet, and physical therapy says he should continue to use a walker until he is back at baseline strength. He will discharge home today, and keep the Dietz catheter in place. He reports he knows how to take care of that at home. He should follow-up with Dr. Green in approximately 10 days. Complete a 7 day course of ciprofloxacin orally. He has not been able to arrange a ride home, so social work is looking into getting him a ride. #8. Hypertension. Blood pressures have been running a bit high the last few days. He should follow-up with his primary care physician in the next week, to recheck this. This visit took approximately 35 minutes today, to review the patient's records and test results, interview and examine him, review plan of care with staff, and write orders and prescriptions. Discharge diagnosis: Sepsis. Urinary tract infection. Urine retention. Type 2 diabetes. - Time Spent with Patient Total time spent providing and/or coordinating discharge services: Greater than 30 minutes Medical - DS: Exam - Constitutional Vitals: Vital Signs Temp Pulse Resp BP Pulse Ox 11/22/16 07:36 96 11/22/16 06:44 97.2 F 16 159/97 96 11/22/16 03:42 97.4 F 65 16 150/93 96 11/22/16 00:13 97.5 F 73 16 149/93 97 11/21/16 20:31 98.2 F 69 20 155/90 97 11/21/16 16:00 97.7 F 70 18 142/70 98 11/21/16 12:00 97.7 F 70 18 146/72 97 Intake and Output 11/21/16 11/22/16 11/22/16 21:59 05:59 13:59 Intake Total 730 / 730 660 / 660 600 / 600 Output Total 650 / 650 1650 / 1650 350 / 350 Balance 80 / 80 -990 / -990 250 / 250 Intake: Oral 730 / 730 660 / 660 600 / 600 Output: Urine Catheter Amount 650 / 650 1650 / 1650 350 / 350 Other: Meal Dinner Breakfast Percent of Meal Consumed 75% 100% Feeding Ability Independent # Bowel Movements 1 Weight 350 lb Medical - DS: Data Labs on day of discharge: Labs from last 24 hours 11/22/16 11/22/16 05:00 05:00 WBC 9.5 RBC 4.38 L Hgb 13.6 Hct 41.3 MCV 94.3 MCH 31.2 MCHC 33.0 RDW 14.3 Plt Count 252 MPV 10.4 Gran % 65.2 Lymph % (Auto) 21.8 Warren % (Auto) 8.3 Eos % (Auto) 4.3 Baso % (Auto) 0.4 Gran # 6.2 Lymph # (Auto) 2.1 Warren # (Auto) 0.8 Eos # (Auto) 0.4 Baso # (Auto) 0 Sodium 135 Potassium 4.1 Chloride 103 Carbon Dioxide 20 L Anion Gap 12.0 BUN 12 Creatinine 0.9 GFR Calculation 89 Glucose 119 H Uric Acid 5.7 Calcium 9.0 Phosphorus 2.9 Magnesium 2.0 Total Bilirubin 0.5 Direct Bilirubin < 0.2 GGT 24 AST 9 ALT 12 Alkaline Phosphatase 61 Lactate Dehydrogenase 193 Total Protein 6.8 Albumin 3.7 Globulin 3.1 Albumin/Globulin Ratio 1.2 Triglycerides 108 November 7: Urinalysis showed 30 mg of protein, 2.0 urobilinogen, 75 leukocyte esterase, 2 red blood cells, 44 white blood cells Blood cultures are negative so far. Urine culture grew greater than 100,000 E. coli. Resistant to ampicillin, Augmentin, Bactrim, but sensitive to Ancef, ceftriaxone, ciprofloxacin, nitrofurantoin EKG showed normal sinus rhythm at a rate of 76, with left axis deviation, without significant change compared to May. Renal ultrasound showed multiple renal cysts, no hydronephrosis, no stones. Renal cortex appears somewhat echogenic. Chest x-ray, portable, was read as normal. Medical - DS: A/P - Patient/Caregiver Discharge Instructions Activity: increase activity as tolerated Diet: Consistent Carbohydrate Additional Instructions: 1. Dietz catheter, keep in place until you see Dr. Green in approximately 10 days. 2- Ciprofloxacin, take twice a day for 1 week, for bladder infection. Resume Flomax, 0.4 mg twice a day. Prescriptions electronically faxed to [facility] 3. CPAP should be used every night for sleep apnea. 4. Your blood pressure has been running high. Please see your regular doctor in the next 7-10 days to recheck this. Prescriptions: Ciprofloxacin [Cipro] 500 mg PO BID #14 tablet Tamsulosin [Flomax] 0.4 mg PO BID #60 capsule - Follow up Plan Follow up with: Tosha Vaca MD [Primary Care Provider] - Jett Green MD [Physician] - 12/06/16 8:45 am Disposition: Home, Self-Care Prognosis: Good Rehab Potential: Good I certify that the patient requires SNF services: No Overall status at discharge: patient is progressing back to baseline Medical - DS: Qual - VTE Deep Vein Thrombosis/Pulmonary Embolism Present on Admission: No
== END 2016-11-22 12:30 | disposition home or self-care (01) | DRG 872 ==
LOC: ED 10:14 → MEDSUR 14:48 → SUATTDRO 14:48 → MEDSUR 14:53
PROVIDERS: ADMIT Internal Medicine; ATTEND Internal Medicine

== ENCOUNTER 2017-12-15 06:26 | Inpatient (IN) ==
[2017-12-15] MEDS ORDERED: IOPAMIDOL 100 ML BOTTLE IV ONE (06:27)
[2017-12-15] MEDS ORDERED: ONDANSETRON 4 MG/2 ML VIAL IV ONE (06:35)
[2017-12-15] MEDS ORDERED: ACETAMINOPHEN 325 MG TABLET PO ONE (06:45)
[2017-12-15] MEDS ORDERED: LACTATED RINGERS 1,000 ML IV ONE (06:45)
--- NOTE | 2017-12-15 06:49 | Emergency Department Note ---
General Adult HPI - General Chief complaint: Fever Stated complaint: fever Time Seen by Provider: 12/15/17 06:44 Source: patient Mode of arrival: EMS Limitations: no limitations - History of Present Illness HPI Narrative: This patient has felt ill for 2 days with fever slight cough nausea vomiting. He does have a history of recurrent UTI from self-catheterization for urinary retention. Has no abdominal pain. Denies any other symptoms. - Related Data Home Medications Medication Instructions Recorded Confirmed Gabapentin [Neurontin] 600 mg PO HS 12/15/17 12/21/17 Gabapentin [Neurontin] 900 mg PO BID 12/15/17 12/21/17 Lisinopril [Zestril] 10 mg PO DAILY 12/15/17 12/21/17 Tamsulosin [Flomax] 0.4 mg PO BID 12/15/17 12/21/17 Triamcinolone Cream 0.1% 15G 1 dose TOPICAL BID 12/15/17 12/21/17 [Kenalog Cream 0.1%] metFORMIN [Glucophage] 500 mg PO BID 12/15/17 12/21/17 Previous Rx's Medication Instructions Recorded Ciprofloxacin [Cipro] 500 mg PO BID #20 tab 12/20/17 oxyCODONE/APAP [Percocet 5-325 mg] 1 tab PO Q4H PRN #30 tab 12/20/17 Allergies Allergy/AdvReac Type Severity Reaction Status Date / Time tolterodine [From Detrol] Allergy Intermediate Glaucoma Verified 12/21/17 06:05 Review of Systems All systems ED: reviewed and negative except as stated. Past Medical History - Past Medical History [facility] Narrative: Medical History (Last Reviewed 11/11/17 @ 09:16 by Haven Chung RN) Apnea (Chronic) History of urinary tract infection (Chronic) Restless leg syndrome (Chronic) Diabetes mellitus, type II (Chronic) Edema (Chronic) Fungal infection (Chronic) Glaucoma (Chronic) Hyperlipidemia, mixed (Chronic) Hypertension (Chronic) Hypertrophy of prostate with urinary obstruction (Chronic 09/23/14) Hypokalemia (Chronic) Obesity (Chronic) Benign localized hyperplasia of prostate with urinary obstruction (Chronic) Pain in joint, shoulder region (Chronic) Osteoarthrosis, ankle and foot (Chronic) History of continuous positive airway pressure (CPAP) dependence (Chronic) UTI (urinary tract infection) (Chronic) E. coli infection (Chronic) Past Surgical History (Last Reviewed 11/11/17 @ 09:16 by Haven Chung RN) History of toe surgery (Chronic) History of knee surgery (Chronic) S/P surgical manipulation of ankle joint (Chronic) History of photovaporization of prostate (Chronic 01/21/15) Family History (Last Reviewed 11/11/17 @ 09:16 by Haven Chung RN) Father Cardiac disease Malignant neoplasm Unknown Type 2 diabetes mellitus Medical history: Reports: DM, other Psychiatric history: Reports: no psych history Surgical history ED: Reports: prostatectomy (TURP) - Social History smoking status: Never smoker Alcohol use: Reports: None Drug use: Reports: none Physical Exam Limitations: no limitations General appearance: alert Head: atraumatic Eye: Present: normal appearance ENT: normal exam Neck: Present: normal inspection Chest: Present: normal inspection Respiratory: Present: normal lung sounds bilaterally Cardiovascular: Present: regular rate, normal rhythm, normal heart sounds Abdominal: Present: soft. Absent: distention, tenderness Neurological: Present: alert Psychiatric: Present: normal affect, normal mood Skin: Present: warm, dry, intact Course Vital Signs Temperature 102.3 F H 12/15/17 06:27 Pulse Rate 81 12/15/17 06:27 Respiratory Rate 19 12/15/17 06:27 Blood Pressure 145/69 12/15/17 06:27 Pulse Oximetry (%) 93 12/15/17 06:27 Temperature 98.9 F 12/20/17 17:34 Pulse Rate 92 H 12/20/17 17:34 Respiratory Rate 16 12/20/17 17:34 Blood Pressure 139/79 12/20/17 17:34 Pulse Oximetry (%) 92 12/20/17 17:34 Medical Decision Making - [facility] Narrative Medical decision making narrative: This patient has urosepsis and will be admitted to the hospitalist service. - Lab Data Lab results reviewed: Yes I reviewed the patient's lab results. Result diagrams: 12/19/17 10:05 12/19/17 10:05 Lab Results 12/15/17 12/15/17 12/15/17 Range/Units 06:55 06:55 06:55 WBC 11.1 H (4.5-11.0) K/mcL RBC 4.43 L (4.50-5.90) M/mcL Hgb 13.9 (13.5-16.5) g/dL Hct 41.6 (41.0-55.0) % MCV 93.9 (80.0-100.0) fL MCH 31.3 (26.0-34.0) pg MCHC 33.3 (31.0-36.0) g/dL RDW 14.4 (11.5-14.5) % Plt Count 249 (140-440) K/mcL MPV 10.4 (7.4-10.4) fL Gran % 84.6 H (38.0-78.0) % Lymph % (Auto) 7.8 L (15.5-49.0) % [place] % (Auto) 6.9 (1.0-12.0) % Eos % (Auto) 0.5 (0.0-7.0) % Baso % (Auto) 0.2 (0.0-2.0) % Gran # 9.4 H (1.8-8.0) K/mcL Lymph # (Auto) 0.9 L (1.5-4.8) K/mcL [place] # (Auto) 0.8 (0.1-0.9) K/mcL Eos # (Auto) 0.1 (0.0-0.7) K/mcL Baso # (Auto) 0 (0.0-0.3) K/mcL ESR (0-15) mm/hr PT (11.9-14.5) sec INR (0.9-1.1) APTT (20-37) sec VBG Lactic Acid (0.5-2.2) mmol/L Sodium 138 (133-145) mmol/L Potassium 4.0 (3.3-5.1) mmol/L Chloride 100 (96-108) mmol/L Carbon Dioxide 23 (22-30) mmol/L Anion Gap 15.0 (8-16) BUN 15 (8-23) mg/dl Creatinine 1.0 (0.7-1.2) mg/dl GFR Calculation 78 Glucose 195 H (70-105) mg/dL Uric Acid (2.5-8.0) mg/dL Calcium 9.1 (8.6-10.4) mg/dl Phosphorus (2.7-4.5) mg/dL Magnesium (1.6-2.5) mg/dL Total Bilirubin 2.9 H (0.0-1.0) mg/dL Direct Bilirubin (0.0-0.3) mg/dL GGT (8-61) U/L AST 314 H (0-37) U/l ALT 339 H (0-40) U/l Alkaline Phosphatase 91 (39-117) U/L Lactate Dehydrogenase (94-250) U/L NT-Pro-B Natriuret Pep (0-125) pg/ml Total Protein 7.2 (5.9-8.4) gm/dL Albumin 4.1 (3.2-5.2) gm/dL Globulin 3.1 (2.2-3.7) gm/dL Albumin/Globulin Ratio 1.3 (1.0-2.3) Triglycerides (<150) mg/dl Amylase (28-100) U/L Lipase (7-60) U/L Urine Color Yellow Urine Appearance Cloudy Urine pH 7.0 (5.0-9.0) Ur Specific [place] 1.015 (1.000-1.035) Urine Protein 30 A (NEG) mg/dL Urine Glucose (UA) Negative (NEG) mg/dL Urine Ketones Neg (NEG) mg/dL Urine Occult Blood Neg (<0.03) mg/dL Urine Nitrate Neg (NEG) Urine Bilirubin Neg (NEG) mg/dL Urine Urobilinogen 4.0 A (NEG) mg/dL Ur Leukocyte Esterase 250 A (NEG) /uL Urine RBC 2 H (0-1) /hpf Urine WBC 56 H (0-4) /hpf Ur Squamous Epith Cells 2 (0-4) /hpf Urine Bacteria 0 (0) /hpf Ur Culture Indicated? Yes 12/15/17 12/15/17 12/15/17 Range/Units 07:05 07:05 07:05 WBC (4.5-11.0) K/mcL RBC (4.50-5.90) M/mcL Hgb (13.5-16.5) g/dL Hct (41.0-55.0) % MCV (80.0-100.0) fL MCH (26.0-34.0) pg MCHC (31.0-36.0) g/dL RDW (11.5-14.5) % Plt Count (140-440) K/mcL MPV (7.4-10.4) fL Gran % (38.0-78.0) % Lymph % (Auto) (15.5-49.0) % [place] % (Auto) (1.0-12.0) % Eos % (Auto) (0.0-7.0) % Baso % (Auto) (0.0-2.0) % Gran # (1.8-8.0) K/mcL Lymph # (Auto) (1.5-4.8) K/mcL [place] # (Auto) (0.1-0.9) K/mcL Eos # (Auto) (0.0-0.7) K/mcL Baso # (Auto) (0.0-0.3) K/mcL ESR (0-15) mm/hr PT 14.4 (11.9-14.5) sec INR 1.1 (0.9-1.1) APTT 34 (20-37) sec VBG Lactic Acid (0.5-2.2) mmol/L Sodium (133-145) mmol/L Potassium (3.3-5.1) mmol/L Chloride (96-108) mmol/L Carbon Dioxide (22-30) mmol/L Anion Gap (8-16) BUN (8-23) mg/dl Creatinine (0.7-1.2) mg/dl GFR Calculation Glucose (70-105) mg/dL Uric Acid (2.5-8.0) mg/dL Calcium (8.6-10.4) mg/dl Phosphorus (2.7-4.5) mg/dL Magnesium (1.6-2.5) mg/dL Total Bilirubin (0.0-1.0) mg/dL Direct Bilirubin (0.0-0.3) mg/dL GGT (8-61) U/L AST (0-37) U/l ALT (0-40) U/l Alkaline Phosphatase (39-117) U/L Lactate Dehydrogenase (94-250) U/L NT-Pro-B Natriuret Pep 443.8 H (0-125) pg/ml Total Protein (5.9-8.4) gm/dL Albumin (3.2-5.2) gm/dL Globulin (2.2-3.7) gm/dL Albumin/Globulin Ratio (1.0-2.3) Triglycerides (<150) mg/dl Amylase 30 (28-100) U/L Lipase (7-60) U/L Urine Color Urine Appearance Urine pH (5.0-9.0) Ur Specific [place] (1.000-1.035) Urine Protein (NEG) mg/dL Urine Glucose (UA) (NEG) mg/dL Urine Ketones (NEG) mg/dL Urine Occult Blood (<0.03) mg/dL Urine Nitrate (NEG) Urine Bilirubin (NEG) mg/dL Urine Urobilinogen (NEG) mg/dL Ur Leukocyte Esterase (NEG) /uL Urine RBC (0-1) /hpf Urine WBC (0-4) /hpf Ur Squamous Epith Cells (0-4) /hpf Urine Bacteria (0) /hpf Ur Culture Indicated? 12/15/17 12/15/17 12/15/17 Range/Units 07:05 07:05 07:10 WBC (4.5-11.0) K/mcL RBC (4.50-5.90) M/mcL Hgb (13.5-16.5) g/dL Hct (41.0-55.0) % MCV (80.0-100.0) fL MCH (26.0-34.0) pg MCHC (31.0-36.0) g/dL RDW (11.5-14.5) % Plt Count (140-440) K/mcL MPV (7.4-10.4) fL Gran % (38.0-78.0) % Lymph % (Auto) (15.5-49.0) % [place] % (Auto) (1.0-12.0) % Eos % (Auto) (0.0-7.0) % Baso % (Auto) (0.0-2.0) % Gran # (1.8-8.0) K/mcL Lymph # (Auto) (1.5-4.8) K/mcL [place] # (Auto) (0.1-0.9) K/mcL Eos # (Auto) (0.0-0.7) K/mcL Baso # (Auto) (0.0-0.3) K/mcL ESR 13 (0-15) mm/hr PT (11.9-14.5) sec INR (0.9-1.1) APTT (20-37) sec VBG Lactic Acid 7.8 H* (0.5-2.2) mmol/L Sodium (133-145) mmol/L Potassium (3.3-5.1) mmol/L Chloride (96-108) mmol/L Carbon Dioxide (22-30) mmol/L Anion Gap (8-16) BUN (8-23) mg/dl Creatinine (0.7-1.2) mg/dl GFR Calculation Glucose (70-105) mg/dL Uric Acid (2.5-8.0) mg/dL Calcium (8.6-10.4) mg/dl Phosphorus (2.7-4.5) mg/dL Magnesium (1.6-2.5) mg/dL Total Bilirubin (0.0-1.0) mg/dL Direct Bilirubin (0.0-0.3) mg/dL GGT (8-61) U/L AST (0-37) U/l ALT (0-40) U/l Alkaline Phosphatase (39-117) U/L Lactate Dehydrogenase (94-250) U/L NT-Pro-B Natriuret Pep 433.1 H (0-125) pg/ml Total Protein (5.9-8.4) gm/dL Albumin (3.2-5.2) gm/dL Globulin (2.2-3.7) gm/dL Albumin/Globulin Ratio (1.0-2.3) Triglycerides (<150) mg/dl Amylase (28-100) U/L Lipase 34 (7-60) U/L Urine Color Urine Appearance Urine pH (5.0-9.0) Ur Specific [place] (1.000-1.035) Urine Protein (NEG) mg/dL Urine Glucose (UA) (NEG) mg/dL Urine Ketones (NEG) mg/dL Urine Occult Blood (<0.03) mg/dL Urine Nitrate (NEG) Urine Bilirubin (NEG) mg/dL Urine Urobilinogen (NEG) mg/dL Ur Leukocyte Esterase (NEG) /uL Urine RBC (0-1) /hpf Urine WBC (0-4) /hpf Ur Squamous Epith Cells (0-4) /hpf Urine Bacteria (0) /hpf Ur Culture Indicated? 12/15/17 12/16/17 12/16/17 Range/Units 09:05 04:47 04:47 WBC 8.5 (4.5-11.0) K/mcL RBC 4.05 L (4.50-5.90) M/mcL Hgb 12.7 L (13.5-16.5) g/dL Hct 38.5 L (41.0-55.0) % MCV 95.0 (80.0-100.0) fL MCH 31.2 (26.0-34.0) pg MCHC 32.9 (31.0-36.0) g/dL RDW 15.1 H (11.5-14.5) % Plt Count 198 (140-440) K/mcL MPV 10.3 (7.4-10.4) fL Gran % 77.4 (38.0-78.0) % Lymph % (Auto) 11.0 L (15.5-49.0) % [place] % (Auto) 10.0 (1.0-12.0) % Eos % (Auto) 1.3 (0.0-7.0) % Baso % (Auto) 0.3 (0.0-2.0) % Gran # 6.6 (1.8-8.0) K/mcL Lymph # (Auto) 0.9 L (1.5-4.8) K/mcL [place] # (Auto) 0.9 (0.1-0.9) K/mcL Eos # (Auto) 0.1 (0.0-0.7) K/mcL Baso # (Auto) 0 (0.0-0.3) K/mcL ESR (0-15) mm/hr PT (11.9-14.5) sec INR (0.9-1.1) APTT (20-37) sec VBG Lactic Acid 1.3 (0.5-2.2) mmol/L Sodium 139 (133-145) mmol/L Potassium 4.1 (3.3-5.1) mmol/L Chloride 104 (96-108) mmol/L Carbon Dioxide 20 L (22-30) mmol/L Anion Gap 15.0 (8-16) BUN 13 (8-23) mg/dl Creatinine 1.0 (0.7-1.2) mg/dl GFR Calculation 78 Glucose 111 H (70-105) mg/dL Uric Acid 6.1 (2.5-8.0) mg/dL Calcium 8.3 L (8.6-10.4) mg/dl Phosphorus 2.9 (2.7-4.5) mg/dL Magnesium 1.8 (1.6-2.5) mg/dL Total Bilirubin 2.3 H (0.0-1.0) mg/dL Direct Bilirubin 0.9 H (0.0-0.3) mg/dL GGT 256 H (8-61) U/L AST 106 H (0-37) U/l ALT 223 H (0-40) U/l Alkaline Phosphatase 72 (39-117) U/L Lactate Dehydrogenase 191 (94-250) U/L NT-Pro-B Natriuret Pep (0-125) pg/ml Total Protein 6.1 (5.9-8.4) gm/dL Albumin 3.3 (3.2-5.2) gm/dL Globulin 2.8 (2.2-3.7) gm/dL Albumin/Globulin Ratio 1.2 (1.0-2.3) Triglycerides 75 (<150) mg/dl Amylase (28-100) U/L Lipase (7-60) U/L Urine Color Urine Appearance Urine pH (5.0-9.0) Ur Specific [place] (1.000-1.035) Urine Protein (NEG) mg/dL Urine Glucose (UA) (NEG) mg/dL Urine Ketones (NEG) mg/dL Urine Occult Blood (<0.03) mg/dL Urine Nitrate (NEG) Urine Bilirubin (NEG) mg/dL Urine Urobilinogen (NEG) mg/dL Ur Leukocyte Esterase (NEG) /uL Urine RBC (0-1) /hpf Urine WBC (0-4) /hpf Ur Squamous Epith Cells (0-4) /hpf Urine Bacteria (0) /hpf Ur Culture Indicated? Disposition Pt seen by OPTOMETRIC ASSISTANT/PA only: No Clinical Impression: Hepatitis cholestatic UTI (urinary tract infection) Qualifiers: Urinary tract infection type: acute cystitis Hematuria presence: without hematuria Qualified Code(s): N30.00 - Acute cystitis without hematuria Cholecystitis with cholelithiasis Qualifiers: Cholelithiasis location: gallbladder Cholecystitis acuity: acute Biliary obstruction: without biliary obstruction Qualified Code(s): K80.00 - Calculus of gallbladder with acute cholecystitis without obstruction Disposition: Xfer As Inpt ([facility]) Condition: Good
[2017-12-15 07:26] LABS: Basophils # (Auto) 0 K/mcL (0.0-0.3); Basophils % (Auto) 0.2 % (0.0-2.0); Eosinophils # (Auto) 0.1 K/mcL (0.0-0.7); Eosinophils % (Auto) 0.5 % (0.0-7.0); Granulocytes % (Auto) 84.6 % (38.0-78.0); Lymphocytes # (Auto) 0.9 K/mcL (1.5-4.8); Lymphocytes % (Auto) 7.8 % (15.5-49.0); Mean Cell Volume 93.9 fL (80.0-100.0); Mean Corpuscular HGB Conc 33.3 g/dL (31.0-36.0); Mean Corpuscular Hemoglobin 31.3 pg (26.0-34.0); Monocytes # (Auto) 0.8 K/mcL (0.1-0.9); Monocytes % (Auto) 6.9 % (1.0-12.0); Platelet Count 249 K/mcL (140-440); RBC 4.43 M/mcL (4.50-5.90); Red Cell Distribution Width 14.4 % (11.5-14.5)
--- NOTE | 2017-12-15 07:44 | XRay Report ---
CLINICAL INFORMATION: Cough COMPARISON: 05/22/2017 FINDINGS: Moderate cardiomegaly is unchanged. Mild asymmetric enlargement of the right hilum demonstrate long-term stability. Left hilum and mediastinum unremarkable. Pulmonary vessels are now mildly distended. No edema. Minor bibasilar scarring demonstrates long-term stability - no definite infiltrate or effusion. IMPRESSION: Mild CHF. Interpreted and Authenticated by: Francisco Javier Rush 12/15/17
[2017-12-15 07:47] LABS: ALT/SGPT 339 U/l (0-40); Albumin 4.1 gm/dL (3.2-5.2); Albumin/Globulin Ratio 1.3 (1.0-2.3); Alkaline Phosphatase 91 U/L (39-117); Appearance,Urine CLOUDY; Bacteria,Urine 0 /hpf (0); Bilirubin,Urine NEG (NEG); Blood Urea Nitrogen 15 mg/dl (8-23); Color,Urine YELLOW; Glucose,Urine (UA) NEGATIVE (NEG); Leukocyte Esterase,Urine 250 /uL (NEG); Protein,Urine 30 mg/dL (NEG); Specific Gravity,Urine 1.015 (1.000-1.035); Urine Blood NEG mg/dL (<0.03); Urine RBC 2 /hpf (0-1); Urine Squamous Epithelial Cell 2 /hpf (0-4); Urine WBC 56 /hpf (0-4)
[2017-12-15] MEDS ORDERED: cefTRIAXone 2 GM VIAL IV ONE (08:21)
[2017-12-15] MEDS ORDERED: LEVOFLOXACIN 750 MG/150 ML BAG IV ONE (08:21)
[2017-12-15] MEDS ORDERED: 0.9 % SODIUM CHLORIDE 1,000 ML IV ONE (08:23)
[2017-12-15 08:27] LABS: proBNP 443.8 pg/ml (0-125)
--- NOTE | 2017-12-15 10:37 | Cat Scan Report ---
CLINICAL INFORMATION: Fever and elevated LFTs COMPARISON: None. TECHNIQUE: Following enteric contrast, 80 cc of Isovue-300 were injected intravenously, and 60 seconds later, 0.625 mm helical slices were obtained from the mid heart through the subtrochanteric regions. Following reconstruction, 2.5 mm sagittal, coronal and axial reformatted images were processed and reviewed at bone, lung and soft tissue windows. Five minutes later, 0.625 mm helical slices were obtained from the mid heart through the kidneys and viewed at soft tissue windows.The exam was performed using radiation dose optimization techniques including, but not limited to, automated exposure control, adjustment of the mA and/or kV according to patient size and use of iterative reconstruction technique. FINDINGS: Lung bases show scattered scarring and/or atelectasis. There are tiny bilateral pleural effusions. The visualized heart is borderline enlarged. Images of the abdomen show mild fatty change within the liver, but no focal lesions. There are 3-4 large stones in the gallbladder which range up to 2.5 cm. The gallbladder wall is mildly thickened and there is pericholecystic fluid suggesting associated cholecystitis. Intrahepatic and common bile ducts are normal caliber - CBD is 6 mm. Both adrenal glands, spleen, pancreas and aorta, including aortic branches, are normal in size, configuration and attenuation without focal lesion. There are multiple cysts on both kidneys including a massive 11 cm cyst projecting from the posterior cortex of the superior/mid right kidney. A 14 mm fat-containing nodule in the anterior cortex mid left kidney is compatible with a benign angiomyolipoma. There is no free air, free fluid and no adenopathy. The stomach, small and large bowel are normal. Images through the pelvis show prostate is diminutive with mild conical expansion of the prostatic urethra suggesting prior TURP procedure. The urinary bladder is normal. Bone windows show no osseous abnormality IMPRESSION: 1. Cholecystitis. The bile ducts are normal caliber 2. Mild fatty changes within the liver 3. Scattered cysts in both kidneys which range up to 11 cm posterior cortex superior/mid right kidney. 4. 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 Interpreted and Authenticated by: Francisco Javier Rush 12/15/17
--- NOTE | 2017-12-15 10:57 | Emergency Department Note ---
Fever HPI - General Chief Complaint: Fever Stated Complaint: fever Time Seen by Provider: 12/15/17 06:44 Source: patient Mode of arrival: EMS Limitations: no limitations - History of Present Illness HPI Narrative: This patient was checked out to me by Dr. leblanc at shift change CT scan of the abdomen pelvis was pending secondary to concerns for possible need for ERCP in the setting of cholelithiasis/cholecystitis/hepatitis. Also concern for urosepsis versus UTI with SIRS. Antibiotics were restarted after cultures done Initial lactic acid was very elevated but thought to be mistaken as patient did not appear that ill consistent with the numbers. Repeat lactic acid was more consistent with clinical picture Patient remained febrile despite receiving acetaminophen - Related Data Home Medications Medication Instructions Recorded Confirmed Gabapentin [Neurontin] 600 mg PO HS 12/15/17 12/15/17 Gabapentin [Neurontin] 900 mg PO BID 12/15/17 12/15/17 Lisinopril [Zestril] 10 mg PO DAILY 12/15/17 12/15/17 Tamsulosin [Flomax] 0.4 mg PO BID 12/15/17 12/15/17 Triamcinolone Cream 0.1% 15G 1 dose TOPICAL BID 12/15/17 12/15/17 [Kenalog Cream 0.1%] metFORMIN [Glucophage] 500 mg PO BID 12/15/17 12/15/17 traMADol HCL [Ultram] 1 - 2 tablet PO TIDP PRN 12/15/17 12/15/17 Allergies Allergy/AdvReac Type Severity Reaction Status Date / Time tolterodine [From Detrol] Allergy Unknown Other Verified 11/11/17 09:15 Fever PMH - Past Medical History Medical history: Reports: DM, other Psychiatric history: Reports: no psych history - Social History smoking status: Never smoker Alcohol use: Reports: None Drug use: Reports: none Physical Exam Limitations: no limitations General appearance: alert Course Vital Signs Temperature 102.3 F H 12/15/17 06:27 Pulse Rate 81 12/15/17 06:27 Respiratory Rate 19 12/15/17 06:27 Blood Pressure 145/69 12/15/17 06:27 Pulse Oximetry (%) 93 12/15/17 06:27 Temperature 100.2 F H 12/15/17 09:04 Pulse Rate 70 12/15/17 09:28 Respiratory Rate 18 12/15/17 09:28 Blood Pressure 113/70 12/15/17 09:16 Pulse Oximetry (%) 93 12/15/17 09:28 Fever - Lab Data Lab results reviewed: Yes I reviewed the patient's lab results. Result diagrams: 12/15/17 06:55 12/15/17 06:55 Lab Results 12/15/17 12/15/17 12/15/17 Range/Units 06:55 06:55 06:55 WBC 11.1 H (4.5-11.0) K/mcL RBC 4.43 L (4.50-5.90) M/mcL Hgb 13.9 (13.5-16.5) g/dL Hct 41.6 (41.0-55.0) % MCV 93.9 (80.0-100.0) fL MCH 31.3 (26.0-34.0) pg MCHC 33.3 (31.0-36.0) g/dL RDW 14.4 (11.5-14.5) % Plt Count 249 (140-440) K/mcL MPV 10.4 (7.4-10.4) fL Gran % 84.6 H (38.0-78.0) % Lymph % (Auto) 7.8 L (15.5-49.0) % [place] % (Auto) 6.9 (1.0-12.0) % Eos % (Auto) 0.5 (0.0-7.0) % Baso % (Auto) 0.2 (0.0-2.0) % Gran # 9.4 H (1.8-8.0) K/mcL Lymph # (Auto) 0.9 L (1.5-4.8) K/mcL [place] # (Auto) 0.8 (0.1-0.9) K/mcL Eos # (Auto) 0.1 (0.0-0.7) K/mcL Baso # (Auto) 0 (0.0-0.3) K/mcL VBG Lactic Acid (0.5-2.2) mmol/L Sodium 138 (133-145) mmol/L Potassium 4.0 (3.3-5.1) mmol/L Chloride 100 (96-108) mmol/L Carbon Dioxide 23 (22-30) mmol/L Anion Gap 15.0 (8-16) BUN 15 (8-23) mg/dl Creatinine 1.0 (0.7-1.2) mg/dl GFR Calculation 78 Glucose 195 H (70-105) mg/dL Calcium 9.1 (8.6-10.4) mg/dl Total Bilirubin 2.9 H (0.0-1.0) mg/dL AST 314 H (0-37) U/l ALT 339 H (0-40) U/l Alkaline Phosphatase 91 (39-117) U/L NT-Pro-B Natriuret Pep (0-125) pg/ml Total Protein 7.2 (5.9-8.4) gm/dL Albumin 4.1 (3.2-5.2) gm/dL Globulin 3.1 (2.2-3.7) gm/dL Albumin/Globulin Ratio 1.3 (1.0-2.3) Urine Color Yellow Urine Appearance Cloudy Urine pH 7.0 (5.0-9.0) Ur Specific [place] 1.015 (1.000-1.035) Urine Protein 30 A (NEG) mg/dL Urine Glucose (UA) Negative (NEG) mg/dL Urine Ketones Neg (NEG) mg/dL Urine Occult Blood Neg (<0.03) mg/dL Urine Nitrate Neg (NEG) Urine Bilirubin Neg (NEG) mg/dL Urine Urobilinogen 4.0 A (NEG) mg/dL Ur Leukocyte Esterase 250 A (NEG) /uL Urine RBC 2 H (0-1) /hpf Urine WBC 56 H (0-4) /hpf Ur Squamous Epith Cells 2 (0-4) /hpf Urine Bacteria 0 (0) /hpf Ur Culture Indicated? Yes 12/15/17 12/15/17 12/15/17 Range/Units 07:05 07:10 09:05 WBC (4.5-11.0) K/mcL RBC (4.50-5.90) M/mcL Hgb (13.5-16.5) g/dL Hct (41.0-55.0) % MCV (80.0-100.0) fL MCH (26.0-34.0) pg MCHC (31.0-36.0) g/dL RDW (11.5-14.5) % Plt Count (140-440) K/mcL MPV (7.4-10.4) fL Gran % (38.0-78.0) % Lymph % (Auto) (15.5-49.0) % [place] % (Auto) (1.0-12.0) % Eos % (Auto) (0.0-7.0) % Baso % (Auto) (0.0-2.0) % Gran # (1.8-8.0) K/mcL Lymph # (Auto) (1.5-4.8) K/mcL [place] # (Auto) (0.1-0.9) K/mcL Eos # (Auto) (0.0-0.7) K/mcL Baso # (Auto) (0.0-0.3) K/mcL VBG Lactic Acid 7.8 H* 1.3 (0.5-2.2) mmol/L Sodium (133-145) mmol/L Potassium (3.3-5.1) mmol/L Chloride (96-108) mmol/L Carbon Dioxide (22-30) mmol/L Anion Gap (8-16) BUN (8-23) mg/dl Creatinine (0.7-1.2) mg/dl GFR Calculation Glucose (70-105) mg/dL Calcium (8.6-10.4) mg/dl Total Bilirubin (0.0-1.0) mg/dL AST (0-37) U/l ALT (0-40) U/l Alkaline Phosphatase (39-117) U/L NT-Pro-B Natriuret Pep 443.8 H (0-125) pg/ml Total Protein (5.9-8.4) gm/dL Albumin (3.2-5.2) gm/dL Globulin (2.2-3.7) gm/dL Albumin/Globulin Ratio (1.0-2.3) Urine Color Urine Appearance Urine pH (5.0-9.0) Ur Specific [place] (1.000-1.035) Urine Protein (NEG) mg/dL Urine Glucose (UA) (NEG) mg/dL Urine Ketones (NEG) mg/dL Urine Occult Blood (<0.03) mg/dL Urine Nitrate (NEG) Urine Bilirubin (NEG) mg/dL Urine Urobilinogen (NEG) mg/dL Ur Leukocyte Esterase (NEG) /uL Urine RBC (0-1) /hpf Urine WBC (0-4) /hpf Ur Squamous Epith Cells (0-4) /hpf Urine Bacteria (0) /hpf Ur Culture Indicated? - Radiology Data Radiology results reviewed: Yes I reviewed the patient's radiology results. I reviewed his chest x-ray which showed no acute abnormality but mild CHF Reviewed his CT scan of the abdomen pelvis findings copied and pasted below: MPRESSION: 1. Cholecystitis. The bile ducts are normal caliber 2. Mild fatty changes within the liver 3. Scattered cysts in both kidneys which range up to 11 cm posterior cortex superior/mid right kidney. 4. 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 Interpreted and Authenticated by: Francisco Javier Rush 12/15/17 Disposition Pt seen by [employer]/PA only: No Clinical Impression: Hepatitis cholestatic UTI (urinary tract infection) Qualifiers: Urinary tract infection type: acute cystitis Hematuria presence: with hematuria Qualified Code(s): N30.01 - Acute cystitis with hematuria Cholecystitis with cholelithiasis Qualifiers: Cholelithiasis location: gallbladder Cholecystitis acuity: acute Biliary obstruction: without biliary obstruction Qualified Code(s): K80.00 - Calculus of gallbladder with acute cholecystitis without obstruction Summary: Patient has a UTI and cholelithiasis with cholecystitis and hepatitis. Again, concern for SIRS versus sepsis -blood pressure remained stable . we will discuss findings with Dr. Forrester Patient has already been treated with IV fluids and antibiotics after kush Forrester agreed to accept patient and asked me to put in a bed order; he will put in the rest the orders. Planning on doing cholecystectomy tomorrow morning Disposition: Xfer As Inpt ([facility]) Condition: Fair Referrals: Jaguar Jackson [Primary Care Provider] -
[2017-12-15] MEDS ORDERED: HYDROmorphone 2 MG/ML VIAL IV PRN (12:36)
[2017-12-15] MEDS ORDERED: PROMETHAZINE 25 MG/ML VIAL IV PRN (12:36)
[2017-12-15] MEDS ORDERED: ONDANSETRON 4 MG/2 ML VIAL IV PRN (12:36)
[2017-12-15] MEDS ORDERED: ACETAMINOPHEN 1,000 MG/100 ML BOTTLE IV PRN ×2 (12:36→16:27)
[2017-12-15 13:29] LABS: proBNP 433.1 pg/ml (0-125)
[2017-12-15] MEDS: 0.9 % SODIUM CHLORIDE 1,000 ML IV SCH ×2 (14:26→23:14)
--- NOTE | 2017-12-15 16:50 | General Surg History&Physical ---
History of Present Illness Patient information: Note initiated : 12/15/17 at 4:49 pm Service Date, if different from initiated Date: [] Patient: Edy Navarro a 66 y/o M admitted on 12/15/17 for fever. Chief Complaint: [] HPI: Mr. Navarro is a 66 year old M admitted for evaluation of abdominal pain with nausea and vomiting with associated fever. The patient has a 2 day history of feeling weak. This became much worse last night and he had fever with chills nausea and vomiting. He denies having any severe abdominal pain. He was transferred to the emergency room where on evaluation he looked slightly toxic. CT of the abdomen was done and this showed thickened gallbladder with multiple large stones with pericholecystic fluid. He was noted to have bilirubin of 2.9 with a mild elevation in AST and ALT. His alkaline phosphatase is normal. CT shows that the extrahepatic and intrahepatic ducts are normal. The patient also has a history of chronic recurrent urinary tract infection due to bladder outlet obstruction. His urine shows positive leukocyte esterase with 56 white cells and 2 red cells. He is admitted and started on antibiotics. I will review the CT results with the radiologist. Patient specifically does not complain of any epigastric right upper quadrant or right sided back pain. Review of Systems - Constitutional fatigue, malaise, snoring, weakness, weight gain - EENT Nose, mouth and throat: abnormal hearing, dizziness, dry mouth - Cardiovascular dyspnea on exertion, pedal edema, no chest pain at rest, no chest pain with activity, no palpatations, no rapid heart rate - Respiratory no cough, no chest congestion, no excessive phlegm production, no pain with cough - Gastrointestinal abdominal pain, bloating, nausea, vomiting - Genitourinary change in urinary stream, difficulty urinating, urinary hesitancy, urinary incontinence, urinary urgency - Musculoskeletal abnormal gait, joint swelling, myalgias - Integumentary rash (mild rash on lower legs bilaterally) - Neurological abnormal hearing, disequilibrium, numbness, no focal weakness, no headache(s), no tremor(s) - Psychiatric no anxiety, no depression - Hematologic/Lymphatic no easy bleeding, no easy bruising, no lymphadenopathy - Allergic/Immunologic tongue swelling, throat swelling, uticaria, wheezing, lip swelling Past History Past medical history: Diabetes mellitus Obstructive sleep apnea Hypertension. 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 Bilateral total knee arthroplasty Past family history: Coronary artery disease Diabetes mellitus Past social history: Nonsmoker Denies alcohol use Denies drug use Medications and Allergies Home Medications Medication Instructions Recorded Confirmed Type Gabapentin [Neurontin] 600 mg PO HS 12/15/17 12/15/17 History Gabapentin [Neurontin] 900 mg PO BID 12/15/17 12/15/17 History Lisinopril [Zestril] 10 mg PO DAILY 12/15/17 12/15/17 History Tamsulosin [Flomax] 0.4 mg PO BID 12/15/17 12/15/17 History Triamcinolone Cream 0.1% 15G 1 dose TOPICAL BID 12/15/17 12/15/17 History [Kenalog Cream 0.1%] metFORMIN [Glucophage] 500 mg PO BID 12/15/17 12/15/17 History traMADol HCL [Ultram] 1 - 2 tablet PO TIDP PRN 12/15/17 12/15/17 History Allergies Allergy/AdvReac Type Severity Reaction Status Date / Time tolterodine [From Detrol] Allergy Unknown Other Verified 11/11/17 09:15 Exam Temp Pulse Resp BP Pulse Ox 100.3 F H 69 16 127/67 93 12/15/17 14:26 12/15/17 14:26 12/15/17 14:26 12/15/17 14:26 12/15/17 14:26 - General physical appearance well developed, well nourished, no distress, obese (morbidly obese) - Eyes PERRL, normal ocular movement. negative: icteric - ENT normal pinna, normal nares, normal mucosa, no hearing loss, no congestion - Head Head exam IM: Present: atraumatic, normal inspection, normocephalic - Neck no masses, no bruits, trachea midline, no lymphadectomy, no venous distension - Cardiovascular Cardiovascular exam IM: Present: normal rate and rhythm, RRR, +S1, +S2. Absent : gallop, irregular rhythm, JVD, tachycardia - Respiratory normal expansion, normal respiratory effort, clear to auscultation - Abdomen Abdomen: Present: soft, non tender, bowel sounds, distended Hernia: Present: none - Genitourinary Present: normal penis with no external lesions - Integumentary Present: no rash, no growths, no abnormal pigmentation - Neurologic Present: normal coordination, normal sensation - Musculoskeletal Present: normal gait, normal posture - Psychiatric Present: oriented to time, oriented to person, oriented to place, speech is normal, memory intact Assessment and Plan (1) Cholecystitis with cholelithiasis Discussed potential for laparoscopic cholecystectomy tomorrow Status: Acute Qualifiers: Cholelithiasis location: gallbladder Cholecystitis acuity: acute Biliary obstruction: without biliary obstruction Qualified Code(s): K80.00 - Calculus of gallbladder with acute cholecystitis without obstruction (2) Urinary tract infection Status: Acute Qualifiers: Urinary tract infection type: acute cystitis Hematuria presence: without hematuria Qualified Code(s): N30.00 - Acute cystitis without hematuria (3) Diabetes mellitus, type II Will do Accu-Cheks and cover with sliding scale insulin Status: Chronic (4) History of continuous positive airway pressure (CPAP) dependence Status: Chronic (5) Hypertension Status: Chronic (6) UTI (urinary tract infection) Invanz 1 g IV daily pending urine cultures Status: Chronic Comment: with urosepsis (7) Obstructive sleep apnea Patient advised to wear his BiPAP at night Status: Acute
[2017-12-15] MEDS: ERTAPENEM 1 GM in 0.9 % SODIUM CHLORIDE 50 ML IV SCH (17:19)
[2017-12-15] MEDS: PANTOPRAZOLE 40 MG VIAL IV SCH (17:19)
[2017-12-15] MEDS: GABAPENTIN 300 MG CAPSULE PO SCH (21:53)
[2017-12-15] MEDS: ACETAMINOPHEN 1,000 MG/100 ML BOTTLE IV SCH (22:11)
[2017-12-16] MEDS: 0.9 % SODIUM CHLORIDE 1,000 ML IV SCH ×4 (01:22→18:45)
[2017-12-16] MEDS: ACETAMINOPHEN 1,000 MG/100 ML BOTTLE IV SCH ×4 (03:47→23:30)
[2017-12-16 07:31] LABS: Basophils # (Auto) 0 K/mcL (0.0-0.3); Basophils % (Auto) 0.3 % (0.0-2.0); Eosinophils # (Auto) 0.1 K/mcL (0.0-0.7); Eosinophils % (Auto) 1.3 % (0.0-7.0); Granulocytes % (Auto) 77.4 % (38.0-78.0); Lymphocytes # (Auto) 0.9 K/mcL (1.5-4.8); Mean Corpuscular HGB Conc 32.9 g/dL (31.0-36.0); Mean Corpuscular Hemoglobin 31.2 pg (26.0-34.0); Monocytes # (Auto) 0.9 K/mcL (0.1-0.9); Platelet Count 198 K/mcL (140-440); RBC 4.05 M/mcL (4.50-5.90); Red Cell Distribution Width 15.1 % (11.5-14.5)
[2017-12-16] MEDS: PANTOPRAZOLE 40 MG VIAL IV SCH ×2 (07:45→15:54)
[2017-12-16 07:57] LABS: ALT/SGPT 223 U/l (0-40); Albumin 3.3 gm/dL (3.2-5.2); Albumin/Globulin Ratio 1.2 (1.0-2.3); Alkaline Phosphatase 72 U/L (39-117); Bilirubin,Direct 0.9 mg/dL (0.0-0.3); Blood Urea Nitrogen 13 mg/dl (8-23); Gamma Glutamyl Transpeptidase 256 U/L (8-61); Uric Acid 6.1 mg/dL (2.5-8.0)
[2017-12-16] MEDS: ERTAPENEM 1 GM in 0.9 % SODIUM CHLORIDE 50 ML IV SCH (08:49)
[2017-12-16] MEDS: LISINOPRIL 10 MG TABLET PO SCH (08:50)
[2017-12-16] MEDS ORDERED: cefTRIAXone 1 GM VIAL IV SCH (09:00)
[2017-12-16] MEDS: GABAPENTIN 300 MG CAPSULE PO SCH ×2 (12:00→20:55)
[2017-12-16] MEDS: 0.9 % SODIUM CHLORIDE 10 ML SYRINGE IV SCH (12:53)
--- NOTE | 2017-12-16 14:15 | General Surgery Progress Note ---
Subjective Patient reports: feels better, pain is less, tolerating liquids well, flatus, no bowel movement, fever Narrative: Note initiated : 12/16/17 at 2:14 pm Service Date, if different from initiated Date: [] Patient: Edy Navarro 66 y/o M admitted on 12/16/17 for Fever,UTI, Cholelithiasis w/ Cholecystitis. Chief Complaint: [The patient states that he feels better. He appears overall more bright and alert yesterday. He does not have any chest pain or shortness of breath. He denies abdominal pain and nausea. He's had flatus but no bowel movement. He's having good urinary output. Blood cultures and urine cultures are all growing gram-negative bacillus. Gallbladder surgery is postponed until we have a better control of his sepsis. It is interesting that his white blood count has decreased. We will await for final identification to determine change in antibiotic coverage.] Objective Temp Pulse Resp BP Pulse Ox 98.6 F 56 L 18 123/78 97 12/16/17 12:00 12/16/17 12:00 12/16/17 12:00 12/16/17 12:00 12/16/17 12:00 - Additional Data Intake & Output - Last 24 hours: Intake & Output 12/14/17 12/15/17 12/16/17 12/17/17 05:59 05:59 05:59 05:59 Intake Total 3440 / 3440 1440 / 1440 Output Total 2990 / 2990 475 / 475 Balance 450 / 450 965 / 965 Weight 204 lb - General physical appearance no distress, chronically ill, obese - Eyes PERRL, normal ocular movement - ENT normal pinna, normal nares, normal mucosa, no hearing loss, no congestion - Neck no masses, no bruits, trachea midline, no lymphadectomy, no venous distension - Respiratory normal expansion, normal respiratory effort, clear to auscultation - Cardiovascular Cardiovascular exam: Present: normal rate and rhythm, RRR, +S1, +S2. Absent: JVD, tachycardia - Abdomen non tender, bowel sounds (present), surgical scars (none), masses (none) - Integumentary no rash, no growths, no abnormal pigmentation - Neurologic normal coordination, normal sensation - Psychiatric oriented to time, oriented to person, oriented to place, speech is normal, memory intact - Labs 12/16/17 04:47 12/16/17 04:47 Diabetes panel 12/16/17 Range/Units 04:47 Sodium 139 (133-145) mmol/L Potassium 4.1 (3.3-5.1) mmol/L Chloride 104 (96-108) mmol/L Carbon Dioxide 20 L (22-30) mmol/L BUN 13 (8-23) mg/dl Creatinine 1.0 (0.7-1.2) mg/dl Glucose 111 H (70-105) mg/dL Calcium 8.3 L (8.6-10.4) mg/dl AST 106 H (0-37) U/l ALT 223 H (0-40) U/l Alkaline Phosphatase 72 (39-117) U/L Total Protein 6.1 (5.9-8.4) gm/dL Albumin 3.3 (3.2-5.2) gm/dL Triglycerides 75 (<150) mg/dl Calcium panel 12/16/17 Range/Units 04:47 Calcium 8.3 L (8.6-10.4) mg/dl Phosphorus 2.9 (2.7-4.5) mg/dL Albumin 3.3 (3.2-5.2) gm/dL Pituitary panel 12/16/17 Range/Units 04:47 Sodium 139 (133-145) mmol/L Potassium 4.1 (3.3-5.1) mmol/L Chloride 104 (96-108) mmol/L Carbon Dioxide 20 L (22-30) mmol/L BUN 13 (8-23) mg/dl Creatinine 1.0 (0.7-1.2) mg/dl Glucose 111 H (70-105) mg/dL Calcium 8.3 L (8.6-10.4) mg/dl Adrenal panel 12/16/17 Range/Units 04:47 Sodium 139 (133-145) mmol/L Potassium 4.1 (3.3-5.1) mmol/L Chloride 104 (96-108) mmol/L Carbon Dioxide 20 L (22-30) mmol/L BUN 13 (8-23) mg/dl Creatinine 1.0 (0.7-1.2) mg/dl Glucose 111 H (70-105) mg/dL Calcium 8.3 L (8.6-10.4) mg/dl Total Bilirubin 2.3 H (0.0-1.0) mg/dL AST 106 H (0-37) U/l ALT 223 H (0-40) U/l Alkaline Phosphatase 72 (39-117) U/L Total Protein 6.1 (5.9-8.4) gm/dL Albumin 3.3 (3.2-5.2) gm/dL Assessment and Plan (1) Cholecystitis with cholelithiasis Status: Acute Assessment and plan: Surgery will be delayed for the next 48 hours the gram-negative bacteremia is treated Current Visit: Yes (2) Urinary tract infection Status: Acute Current Visit: No (3) Diabetes mellitus, type II Status: Chronic Current Visit: No (4) History of continuous positive airway pressure (CPAP) dependence Status: Chronic Current Visit: No (5) Hypertension Status: Chronic Current Visit: No (6) UTI (urinary tract infection) Problem details: with urosepsis Status: Chronic Current Visit: No (7) Obstructive sleep apnea Status: Acute Current Visit: Yes - Time Spent With Patient Total time spent is greater than 50% in coordination of care (as documented) at patient's floor/unit and/or counseling patient:
[2017-12-16] MEDS: metFORMIN 500 MG TABLET PO SCH (15:54)
[2017-12-17] MEDS: 0.9 % SODIUM CHLORIDE 10 ML SYRINGE IV SCH ×4 (00:07→21:14)
[2017-12-17] MEDS: 0.9 % SODIUM CHLORIDE 1,000 ML IV SCH ×2 (03:05→14:45)
[2017-12-17] MEDS: ACETAMINOPHEN 1,000 MG/100 ML BOTTLE IV SCH ×3 (05:39→16:56)
[2017-12-17 06:16] LABS: Basophils # (Auto) 0 K/mcL (0.0-0.3); Basophils % (Auto) 0.3 % (0.0-2.0); Eosinophils # (Auto) 0.3 K/mcL (0.0-0.7); Eosinophils % (Auto) 3.8 % (0.0-7.0); Granulocytes % (Auto) 72.6 % (38.0-78.0); Lymphocytes # (Auto) 1.3 K/mcL (1.5-4.8); Mean Cell Volume 94.7 fL (80.0-100.0); Mean Corpuscular HGB Conc 32.9 g/dL (31.0-36.0); Mean Corpuscular Hemoglobin 31.2 pg (26.0-34.0); Monocytes # (Auto) 0.7 K/mcL (0.1-0.9); Monocytes % (Auto) 8.3 % (1.0-12.0); Platelet Count 202 K/mcL (140-440); RBC 3.92 M/mcL (4.50-5.90); Red Cell Distribution Width 15.1 % (11.5-14.5)
[2017-12-17 06:49] LABS: ALT/SGPT 175 U/l (0-40); Albumin 3.2 gm/dL (3.2-5.2); Albumin/Globulin Ratio 1.1 (1.0-2.3); Alkaline Phosphatase 79 U/L (39-117); Bilirubin,Direct 0.4 mg/dL (0.0-0.3); Blood Urea Nitrogen 16 mg/dl (8-23); Gamma Glutamyl Transpeptidase 254 U/L (8-61); Uric Acid 6.3 mg/dL (2.5-8.0)
[2017-12-17] MEDS: PANTOPRAZOLE 40 MG VIAL IV SCH ×2 (07:46→16:55)
[2017-12-17] MEDS: metFORMIN 500 MG TABLET PO SCH ×2 (07:47→16:56)
[2017-12-17] MEDS: GABAPENTIN 300 MG CAPSULE PO SCH ×3 (07:47→21:11)
[2017-12-17] MEDS: ERTAPENEM 1 GM in 0.9 % SODIUM CHLORIDE 50 ML IV SCH (09:21)
[2017-12-17] MEDS: ENOXAPARIN 40 MG/0.4 ML SYRINGE SQ SCH (09:21)
[2017-12-17] MEDS: LISINOPRIL 10 MG TABLET PO SCH (09:21)
--- NOTE | 2017-12-17 12:30 | General Surgery Progress Note ---
Subjective Patient reports: feels better, pain is less, tolerating a regular diet, flatus, bowel movement, afebrile Narrative: Note initiated : 12/17/17 at 12:29 pm Service Date, if different from initiated Date: [] Patient: Edy Navarro 66 y/o M admitted on 12/16/17 for Fever,UTI, Cholelithiasis w/ Cholecystitis. Chief Complaint: [Patient states that he feels better. He is much stronger and more alert. Discussed with him that we would treat him for 2 more days with IV antibiotics and make plans for cholecystectomy on Tuesday. He agrees with this plan. Cultures are growing out Escherichia coli which was sensitive to meropenem. I will continue him on Invanz in the next few days.] Objective Temp Pulse Resp BP Pulse Ox 98.3 F 84 20 132/80 97 12/17/17 11:33 12/17/17 03:42 12/17/17 11:33 12/17/17 11:33 12/17/17 11:33 - Additional Data Intake & Output - Last 24 hours: Intake & Output 12/15/17 12/16/17 12/17/17 12/18/17 05:59 05:59 05:59 05:59 Intake Total 3440 / 3440 3690 / 3690 100 / 100 Output Total 2990 / 2990 1890 / 1890 Balance 450 / 450 1800 / 1800 100 / 100 Weight 204 lb 357 lb 3.2 oz 357 lb 3.2 oz - General physical appearance no distress, no pain, chronically ill, obese - Eyes PERRL, normal ocular movement - ENT normal pinna, normal nares, normal mucosa, no hearing loss, no congestion - Neck no masses, no bruits, trachea midline, no lymphadectomy, no venous distension - Respiratory normal expansion, normal respiratory effort, clear to percussion, clear to auscultation - Cardiovascular Cardiovascular exam: Present: normal rate and rhythm, RRR, +S1, +S2. Absent: JVD, tachycardia - Abdomen non tender, bowel sounds (present), surgical scars (none), masses (none), distended - Integumentary no rash, no growths, no abnormal pigmentation - Neurologic normal coordination, normal sensation - Musculoskeletal normal posture, other (altered gait due to fused right ankle) - Psychiatric oriented to time, oriented to person, oriented to place, speech is normal, memory intact - Labs 12/17/17 04:40 12/17/17 04:40 Diabetes panel 12/17/17 Range/Units 04:40 Sodium 136 (133-145) mmol/L Potassium 4.2 (3.3-5.1) mmol/L Chloride 104 (96-108) mmol/L Carbon Dioxide 21 L (22-30) mmol/L BUN 16 (8-23) mg/dl Creatinine 1.0 (0.7-1.2) mg/dl Glucose 157 H (70-105) mg/dL Calcium 8.2 L (8.6-10.4) mg/dl AST 68 H (0-37) U/l ALT 175 H (0-40) U/l Alkaline Phosphatase 79 (39-117) U/L Total Protein 6.2 (5.9-8.4) gm/dL Albumin 3.2 (3.2-5.2) gm/dL Triglycerides 95 (<150) mg/dl Calcium panel 12/17/17 Range/Units 04:40 Calcium 8.2 L (8.6-10.4) mg/dl Phosphorus 2.3 L (2.7-4.5) mg/dL Albumin 3.2 (3.2-5.2) gm/dL Pituitary panel 12/17/17 Range/Units 04:40 Sodium 136 (133-145) mmol/L Potassium 4.2 (3.3-5.1) mmol/L Chloride 104 (96-108) mmol/L Carbon Dioxide 21 L (22-30) mmol/L BUN 16 (8-23) mg/dl Creatinine 1.0 (0.7-1.2) mg/dl Glucose 157 H (70-105) mg/dL Calcium 8.2 L (8.6-10.4) mg/dl Adrenal panel 12/17/17 Range/Units 04:40 Sodium 136 (133-145) mmol/L Potassium 4.2 (3.3-5.1) mmol/L Chloride 104 (96-108) mmol/L Carbon Dioxide 21 L (22-30) mmol/L BUN 16 (8-23) mg/dl Creatinine 1.0 (0.7-1.2) mg/dl Glucose 157 H (70-105) mg/dL Calcium 8.2 L (8.6-10.4) mg/dl Total Bilirubin 1.0 (0.0-1.0) mg/dL AST 68 H (0-37) U/l ALT 175 H (0-40) U/l Alkaline Phosphatase 79 (39-117) U/L Total Protein 6.2 (5.9-8.4) gm/dL Albumin 3.2 (3.2-5.2) gm/dL Assessment and Plan (1) Cholecystitis with cholelithiasis Status: Acute Assessment and plan: Surgery will be delayed for the next 48 hours the gram-negative bacteremia is treated Current Visit: Yes (2) Urinary tract infection Status: Acute Assessment and plan: Infection due to Escherichia coli which is sensitive to meropenem Current Visit: No (3) Diabetes mellitus, type II Status: Chronic Assessment and plan: Blood sugars are in acceptable range with sliding scale Current Visit: No (4) History of continuous positive airway pressure (CPAP) dependence Status: Chronic Current Visit: No (5) Hypertension Status: Chronic Current Visit: No (6) UTI (urinary tract infection) Problem details: with urosepsis Status: Chronic Assessment and plan: Due to Escherichia coli which is sensitive to the ertapenem that he is receiving Current Visit: No (7) Obstructive sleep apnea Status: Acute Assessment and plan: Patient is not having any difficulty with his BiPAP at night Current Visit: Yes - Time Spent With Patient Total time spent is greater than 50% in coordination of care (as documented) at patient's floor/unit and/or counseling patient:
[2017-12-18] MEDS: ACETAMINOPHEN 1,000 MG/100 ML BOTTLE IV SCH ×5 (00:28→23:55)
[2017-12-18] MEDS: 0.9 % SODIUM CHLORIDE 1,000 ML IV SCH ×3 (02:09→23:55)
[2017-12-18] MEDS: 0.9 % SODIUM CHLORIDE 10 ML SYRINGE IV SCH ×3 (05:32→21:13)
[2017-12-18 06:08] LABS: Basophils # (Auto) 0 K/mcL (0.0-0.3); Basophils % (Auto) 0.3 % (0.0-2.0); Eosinophils # (Auto) 0.4 K/mcL (0.0-0.7); Eosinophils % (Auto) 3.7 % (0.0-7.0); Granulocytes % (Auto) 69.6 % (38.0-78.0); Lymphocytes # (Auto) 1.7 K/mcL (1.5-4.8); Lymphocytes % (Auto) 17.1 % (15.5-49.0); Mean Cell Volume 94.5 fL (80.0-100.0); Mean Corpuscular HGB Conc 33.1 g/dL (31.0-36.0); Mean Corpuscular Hemoglobin 31.2 pg (26.0-34.0); Monocytes # (Auto) 0.9 K/mcL (0.1-0.9); Monocytes % (Auto) 9.3 % (1.0-12.0); Platelet Count 217 K/mcL (140-440); RBC 3.91 M/mcL (4.50-5.90); Red Cell Distribution Width 15.4 % (11.5-14.5)
[2017-12-18 06:32] LABS: ALT/SGPT 137 U/l (0-40); Albumin 3.4 gm/dL (3.2-5.2); Albumin/Globulin Ratio 1.2 (1.0-2.3); Alkaline Phosphatase 90 U/L (39-117); Bilirubin,Direct 0.3 mg/dL (0.0-0.3); Blood Urea Nitrogen 15 mg/dl (8-23); Gamma Glutamyl Transpeptidase 270 U/L (8-61)
[2017-12-18] MEDS: PANTOPRAZOLE 40 MG VIAL IV SCH ×2 (06:53→16:12)
[2017-12-18] MEDS: LISINOPRIL 10 MG TABLET PO SCH (08:05)
[2017-12-18] MEDS: metFORMIN 500 MG TABLET PO SCH ×2 (08:05→17:09)
[2017-12-18] MEDS: GABAPENTIN 300 MG CAPSULE PO SCH ×3 (08:05→21:04)
[2017-12-18] MEDS: ENOXAPARIN 40 MG/0.4 ML SYRINGE SQ SCH (08:06)
[2017-12-18] MEDS: ERTAPENEM 1 GM in 0.9 % SODIUM CHLORIDE 50 ML IV SCH (08:06)
--- NOTE | 2017-12-18 13:15 | General Surgery Progress Note ---
Subjective Patient reports: feels better, pain is less, tolerating a regular diet, flatus, bowel movement, diarrhea, nausea, afebrile Narrative: Note initiated : 12/18/17 at 1:13 pm Service Date, if different from initiated Date: [] Patient: Edy Navarro 66 y/o M admitted on 12/16/17 for Fever,UTI, Cholelithiasis w/ Cholecystitis. Chief Complaint: [Patient states that he feels much better. He has mild nausea and has had some diarrhea with fecal incontinence. He does not have any abdominal pain. He denies chest pain or shortness of breath. He has been afebrile and his white blood count remains normal. Patient counseled for laparoscopic cholecystectomy which will be done tomorrow. He is advised that he will probably be in the hospital 2 days after surgery and then discharged home on oral antibiotics for his urinary tract infection.] Objective Temp Pulse Resp BP Pulse Ox 97.5 F 54 L 18 133/78 98 12/18/17 11:52 12/18/17 11:52 12/18/17 11:52 12/18/17 11:52 12/18/17 11:52 - Additional Data Intake & Output - Last 24 hours: Intake & Output 12/16/17 12/17/17 12/18/17 12/19/17 05:59 05:59 05:59 05:59 Intake Total 3440 / 3440 3690 / 3690 3532 / 3532 340 / 340 Output Total 2990 / 2990 1890 / 1890 3200 / 3200 600 / 600 Balance 450 / 450 1800 / 1800 332 / 332 -260 / -260 Weight 204 lb 357 lb 3.2 oz 338 lb 12.8 oz - General physical appearance no distress, no pain, chronically ill, obese - Eyes PERRL, normal ocular movement - ENT normal pinna, normal nares, normal mucosa, no hearing loss, no congestion - Neck no masses, no bruits, trachea midline, no lymphadectomy, no venous distension - Respiratory normal expansion, normal respiratory effort, clear to percussion, clear to auscultation - Cardiovascular Cardiovascular exam: Present: normal rate and rhythm, RRR, +S1, +S2. Absent: JVD, tachycardia - Abdomen non tender, bowel sounds (present), surgical scars (none), masses (none), distended (abdomen is distended but otherwise benign; no tenderness noted) - Integumentary no rash, no growths, no abnormal pigmentation - Neurologic normal coordination, normal sensation - Musculoskeletal other (altered gait due to fused right ankle) - Psychiatric oriented to time, oriented to person, oriented to place, speech is normal, memory intact - Labs 12/18/17 05:00 12/18/17 05:00 Diabetes panel 12/18/17 Range/Units 05:00 Sodium 136 (133-145) mmol/L Potassium 4.3 (3.3-5.1) mmol/L Chloride 105 (96-108) mmol/L Carbon Dioxide 21 L (22-30) mmol/L BUN 15 (8-23) mg/dl Creatinine 0.8 (0.7-1.2) mg/dl Glucose 109 H (70-105) mg/dL Calcium 8.5 L (8.6-10.4) mg/dl AST 45 H (0-37) U/l ALT 137 H (0-40) U/l Alkaline Phosphatase 90 (39-117) U/L Total Protein 6.3 (5.9-8.4) gm/dL Albumin 3.4 (3.2-5.2) gm/dL Triglycerides 106 (<150) mg/dl Calcium panel 12/18/17 Range/Units 05:00 Calcium 8.5 L (8.6-10.4) mg/dl Phosphorus 2.6 L (2.7-4.5) mg/dL Albumin 3.4 (3.2-5.2) gm/dL Pituitary panel 12/18/17 Range/Units 05:00 Sodium 136 (133-145) mmol/L Potassium 4.3 (3.3-5.1) mmol/L Chloride 105 (96-108) mmol/L Carbon Dioxide 21 L (22-30) mmol/L BUN 15 (8-23) mg/dl Creatinine 0.8 (0.7-1.2) mg/dl Glucose 109 H (70-105) mg/dL Calcium 8.5 L (8.6-10.4) mg/dl Adrenal panel 12/18/17 Range/Units 05:00 Sodium 136 (133-145) mmol/L Potassium 4.3 (3.3-5.1) mmol/L Chloride 105 (96-108) mmol/L Carbon Dioxide 21 L (22-30) mmol/L BUN 15 (8-23) mg/dl Creatinine 0.8 (0.7-1.2) mg/dl Glucose 109 H (70-105) mg/dL Calcium 8.5 L (8.6-10.4) mg/dl Total Bilirubin 0.8 (0.0-1.0) mg/dL AST 45 H (0-37) U/l ALT 137 H (0-40) U/l Alkaline Phosphatase 90 (39-117) U/L Total Protein 6.3 (5.9-8.4) gm/dL Albumin 3.4 (3.2-5.2) gm/dL Assessment and Plan (1) Cholecystitis with cholelithiasis Status: Acute Assessment and plan: Patient is now stable and will be scheduled for laparoscopic cholecystectomy tomorrow. Current Visit: Yes (2) Urinary tract infection Status: Acute Assessment and plan: Infection due to Escherichia coli which is sensitive to meropenem Current Visit: No (3) Diabetes mellitus, type II Status: Chronic Assessment and plan: Blood sugars are in acceptable range with sliding scale Current Visit: No (4) History of continuous positive airway pressure (CPAP) dependence Status: Chronic Current Visit: No (5) Hypertension Status: Chronic Current Visit: No (6) UTI (urinary tract infection) Problem details: with urosepsis Status: Chronic Assessment and plan: Due to Escherichia coli which is sensitive to the ertapenem that he is receiving Current Visit: No (7) Obstructive sleep apnea Status: Acute Assessment and plan: Patient is not having any difficulty with his BiPAP at night Current Visit: Yes - Time Spent With Patient Total time spent is greater than 50% in coordination of care (as documented) at patient's floor/unit and/or counseling patient:
[2017-12-18] MEDS ORDERED: POTASSIUM PHOSPHATE 40 MEQ in DEXTROSE 5% IN WATER 500 ML IV ONE (13:30)
[2017-12-19] MEDS: ACETAMINOPHEN 1,000 MG/100 ML BOTTLE IV SCH ×4 (07:00→23:07)
[2017-12-19] MEDS: LISINOPRIL 10 MG TABLET PO SCH (07:00)
[2017-12-19] MEDS: PANTOPRAZOLE 40 MG VIAL IV SCH ×2 (07:00→16:40)
[2017-12-19] MEDS: GABAPENTIN 300 MG CAPSULE PO SCH ×2 (07:06→11:45)
[2017-12-19] MEDS: ENOXAPARIN 40 MG/0.4 ML SYRINGE SQ SCH (07:06)
[2017-12-19] MEDS: 0.9 % SODIUM CHLORIDE 10 ML SYRINGE IV SCH ×3 (07:07→21:53)
[2017-12-19] MEDS: metFORMIN 500 MG TABLET PO SCH ×2 (07:07→16:41)
[2017-12-19] MEDS: ERTAPENEM 1 GM in 0.9 % SODIUM CHLORIDE 50 ML IV SCH (08:19)
[2017-12-19 10:53] LABS: Basophils # (Auto) 0 K/mcL (0.0-0.3); Basophils % (Auto) 0.5 % (0.0-2.0); Eosinophils # (Auto) 0.3 K/mcL (0.0-0.7); Granulocytes % (Auto) 71.8 % (38.0-78.0); Lymphocytes # (Auto) 1.5 K/mcL (1.5-4.8); Mean Cell Volume 93.9 fL (80.0-100.0); Mean Corpuscular HGB Conc 33.7 g/dL (31.0-36.0); Mean Corpuscular Hemoglobin 31.7 pg (26.0-34.0); Monocytes # (Auto) 0.6 K/mcL (0.1-0.9); Monocytes % (Auto) 6.7 % (1.0-12.0); Platelet Count 248 K/mcL (140-440); RBC 4.12 M/mcL (4.50-5.90); Red Cell Distribution Width 15.2 % (11.5-14.5)
[2017-12-19 11:07] LABS: ALT/SGPT 121 U/l (0-40); Albumin 3.5 gm/dL (3.2-5.2); Albumin/Globulin Ratio 1.2 (1.0-2.3); Alkaline Phosphatase 97 U/L (39-117); Bilirubin,Direct 0.3 mg/dL (0.0-0.3); Blood Urea Nitrogen 14 mg/dl (8-23); Gamma Glutamyl Transpeptidase 253 U/L (8-61); Uric Acid 6.5 mg/dL (2.5-8.0)
[2017-12-19] MEDS ORDERED: DOXAPRAM HCL 20 MG/ML IV ONE (12:24)
[2017-12-19] MEDS ORDERED: ROCURONIUM 10 MG/ML ML IV ONE (12:24)
[2017-12-19] MEDS ORDERED: PROPOFOL 200 MG/20 ML VIAL IV ONE (12:24)
[2017-12-19] MEDS ORDERED: MIDAZOLAM 2 MG/2 ML VIAL ONE (12:24)
[2017-12-19] MEDS ORDERED: fentaNYL 100 MCG/2 ML VIAL IV ONE (12:24)
[2017-12-19] MEDS ORDERED: GLYCOPYRROLATE 0.2 MG/ML VIAL IV ONE (12:24)
[2017-12-19] MEDS ORDERED: KETAMINE 100 MG/ML ML ONE (12:24)
[2017-12-19] MEDS ORDERED: ONDANSETRON 4 MG/2 ML VIAL ONE (12:24)
[2017-12-19] MEDS ORDERED: LIDOCAINE HCL/PF 100 MG/5 ML SYRINGE IV ONE (12:24)
[2017-12-19] MEDS ORDERED: MEPERIDINE 25 MG/ML SYRINGE IV PRN (14:33)
[2017-12-19] MEDS ORDERED: fentaNYL 100 MCG/2 ML VIAL IV PRN (14:33)
[2017-12-19] MEDS ORDERED: KETOROLAC 15 MG/ML VIAL IV PRN (14:33)
[2017-12-19] MEDS ORDERED: PROMETHAZINE 25 MG/ML VIAL IM PRN (14:33)
[2017-12-19] MEDS ORDERED: MEPERIDINE 50 MG/ML INJECTION IM PRN (14:33)
[2017-12-19] MEDS ORDERED: IPRATROPIUM/ALBUTEROL 3 ML AMPUL.NEB NEB PRN (14:33)
[2017-12-19] MEDS ORDERED: LACTATED RINGERS 1,000 ML IV SCH (14:45)
--- NOTE | 2017-12-19 14:54 | Brief Operative Note ---
Date of procedure: 12/19/17 Pre-op diagnosis: cholelithiasis with cholecystitis Post-op diagnosis: other (acute and chronic cholecystitis with cholelithiasis) Procedure: laparoscopic cholecystectomy Grafts/Implants: Yes (jpx1 ) Anesthesia: GETA Findings: severe inflammation of gallbladder with obstructed cystic duct and purulence of gallbladder, multiple large stones Complications: none Surgeon: Yuval Forrester Estimated blood loss (cc): 50 Specimens Removed/Pathology: other (gallbladder and stones) Condition: stable Disposition: PACU
[2017-12-19] MEDS ORDERED: PROMETHAZINE 25 MG/ML VIAL IV PRN (16:10)
[2017-12-19] MEDS ORDERED: ONDANSETRON 4 MG/2 ML VIAL IV PRN (16:10)
[2017-12-19] MEDS: HYDROmorphone 2 MG/ML VIAL IV PRN (17:36)
[2017-12-19] MEDS ORDERED: GABAPENTIN 300 MG CAPSULE PO SCH (21:00)
[2017-12-19] MEDS: 0.9 % SODIUM CHLORIDE 1,000 ML IV SCH (21:56)
[2017-12-20] MEDS: HYDROmorphone 2 MG/ML VIAL IV PRN (03:55)
[2017-12-20] MEDS: ACETAMINOPHEN 1,000 MG/100 ML BOTTLE IV SCH ×2 (06:03→11:22)
[2017-12-20] MEDS: 0.9 % SODIUM CHLORIDE 10 ML SYRINGE IV SCH ×2 (06:06→14:54)
[2017-12-20] MEDS: 0.9 % SODIUM CHLORIDE 1,000 ML IV SCH ×4 (06:06→13:37)
[2017-12-20] MEDS: PANTOPRAZOLE 40 MG VIAL IV SCH (06:51)
[2017-12-20] MEDS: GABAPENTIN 300 MG CAPSULE PO SCH ×2 (08:36→11:23)
[2017-12-20] MEDS: metFORMIN 500 MG TABLET PO SCH (08:36)
[2017-12-20] MEDS ORDERED: ERTAPENEM 1 GM in 0.9 % SODIUM CHLORIDE 50 ML IV SCH (09:00)
[2017-12-20] MEDS ORDERED: LISINOPRIL 10 MG TABLET PO SCH (09:00)
--- NOTE | 2017-12-20 11:52 | Surgical Pathology Report ---
HISTOLOGY SPECIMEN MICROSCOPIC DIAGNOSIS GALLBLADDER, CHOLECYSTECTOMY: -- CHRONIC CHOLECYSTITIS WITH CHOLELITHIASIS. -- ONE BENIGN LYMPH NODE. (RLF:piotr) PROCEDURAL IMPRESSION Cholelithiasis; cholecystitis. GROSS DESCRIPTION Received in formalin labeled with the patient information, is a disrupted gallbladder. It is 8.2 x 3.4 x 2.6 cm. On the hepatic bed there is a 3.0 cm opening. There are multiple lance identified. Where the duct would be, there is a 1.5 cm staple line. There is a firmer purple-barboza nodule of tissue identified near the duct, measuring 2.0 x 1.5 x 0.7 cm. Cut sections are purple-barboza. The gallbladder mucosa is pink-barboza and striated. The wall is up to 0.8 cm thick. There are multiple round to multifaceted stones identified, measuring up to 2.9 cm in greatest dimension. Customer Care Team Coach sections are submitted - two cassettes: A1 - duct and nodule; A2 - random sections. (NICOLASB:piotr) Electronically Signed by: Carole Arenas M.D.
--- NOTE | 2017-12-20 16:17 | Discharge Summary ---
Providers - Providers Patient information: Note initiated : 12/20/17 at 4:13 pm Service Date, if different from initiated Date: [] Patient: Edy Navarro 66 y/o M admitted on 12/16/17 for Fever,UTI, Cholelithiasis w/ Cholecystitis. Chief Complaint: [] Date of admission: 12/15/17 Discharge date: 12/20/17 Attending physician: Yuval Forrester Hospitalization Hospital course: 66-year-old male who was admitted on 15 December with complaints of abdominal pain nausea vomiting fever and general malaise. He had been ill for at least 1 week but became more symptomatic 24 hours before admission. He was seen in the emergency room and was noted to be toxic. Abdominal ultrasound was done and showed a thickened gallbladder with multiple large stones with pericholecystic fluid. The patient also had history of multiple urinary tract infections. Blood cultures were drawn and urine cultures were done. All of these cultures grew out Escherichia coli. He was started on meropenem and improved over the next 3 days. After he was stable he underwent laparoscopic cholecystectomy on 19 December. He was found to have a severely inflamed chronically thickened hard gallbladder with pus and multiple large stones. The surgery proceeded uneventfully. He feels much better today and is tolerating diet without difficulty. There is minimal drainage and his YOLY drain and he is afebrile. His white blood count is normal. Patient is felt to be stable and will be discharged home on ciprofloxacin for another 7 days. Discharge diagnosis: acute urinary tract infection with septicemia Secondary discharge diagnosis: Acute cholecystitis with cholelithiasis Diabetes mellitus Chronic obstructive sleep apnea Hypertension Reason for admission: acute urosepsis and gallbladder disease Procedures: Laparoscopic cholecystectomy DECEMBER 31 Pertinent studies/significant findings: CT of abdomen and pelvis with IV contrast Complications: None Exam Temp Pulse Resp BP Pulse Ox 98.9 F 92 H 16 168/84 92 12/20/17 15:58 12/20/17 15:58 12/20/17 15:58 12/20/17 15:58 12/20/17 15:58 - General physical appearance well developed, well nourished, no distress, chronically ill, obese - Eyes PERRL, normal ocular movement - ENT normal pinna, normal nares, normal mucosa, no hearing loss, no congestion - Head Head exam IM: Present: atraumatic, normocephalic - Neck no masses, no bruits, trachea midline, no lymphadectomy, no venous distension - Cardiovascular Cardiovascular exam IM: Present: normal rate and rhythm, RRR, +S1, +S2. Absent : irregular rhythm, JVD, systolic murmur, tachycardia - Respiratory normal expansion, normal respiratory effort, clear to percussion, clear to auscultation - Abdomen Abdomen: Present: soft, tender (mild tenderness around the operative sites; YOLY drain with serosanguineous fluid), bowel sounds Hernia: Present: none - Genitourinary Present: normal penis with no external lesions - Integumentary Present: no rash, no growths, no abnormal pigmentation - Neurologic Present: normal coordination, normal sensation - Musculoskeletal Present: normal posture, other ( altered gait due to fused right ankle) - Psychiatric Present: oriented to time, oriented to person, oriented to place, speech is normal, memory intact Discharge Plan - Patient/Caregiver Discharge Instructions Activity: increase activity as tolerated Diet: Consistent Carbohydrate Additional Instructions: Empty YOLY drain container once daily Leave dressings in place until your return to the office Prescriptions: Ciprofloxacin [Cipro] 500 mg PO BID #20 tab oxyCODONE/APAP [Percocet 5-325 mg] 1 tab PO Q4H PRN #30 tab PRN Reason: Pain - Follow up Plan Follow up with: Jaguar Jackson [Primary Care Provider] - Disposition: Home, Self-Care Prognosis: Good Rehab Potential: Good I certify that the patient requires SNF services.: No Overall status at discharge: patient is not back to baseline Pending Studies Resuscitation Status Full Code Diet Consistent Carbohydrate Diet Start TueDec 19 161 Diagnostic Test (Pha) (Accu-Chek) 1 each FS ACHS [facility]; Protocol Last Admin: 12/20/17 11:24 Dose: 1 each Admin: 12/20/17 06:54 Dose: 1 each Admin: 12/19/17 22:37 Dose: 1 each Admin: 12/19/17 16:14 Dose: 1 each Gabapentin (Neurontin) 600 mg PO HS [facility] Last Admin: 12/19/17 21:52 Dose: 600 mg Gabapentin (Neurontin) 900 mg PO BID@0800,1200 [facility] Last Admin: 12/20/17 11:23 Dose: 900 mg Admin: 12/20/17 08:36 Dose: 900 mg Hydromorphone HCl (Dilaudid) 1 mg IV Q2HP PRN PRN Reason: PAIN LEVEL > 6 Last Admin: 12/20/17 03:55 Dose: 1 mg Admin: 12/19/17 17:36 Dose: 1 mg Ertapenem 1 gm/ Sodium (Chloride) 50 mls @ 100 mls/hr IV Q24H [facility] Last Admin: 12/20/17 08:37 Dose: 100 mls/hr Acetaminophen (Ofirmev) 1,000 mg in 100 mls @ 200 mls/hr IV Q6H [facility] Last Admin: 12/20/17 11:22 Dose: 200 mls/hr Infusion: 12/20/17 06:33 Dose: 0 mls/hr Admin: 12/20/17 06:03 Dose: 200 mls/hr Infusion: 12/19/17 23:37 Dose: 200 mls/hr Admin: 12/19/17 23:07 Dose: 200 mls/hr Infusion: 12/19/17 18:27 Dose: 200 mls/hr Admin: 12/19/17 17:41 Dose: 200 mls/hr Lisinopril (Zestril) 10 mg PO DAILY [facility] Last Admin: 12/20/17 08:36 Dose: 10 mg Metformin HCl (Glucophage) 500 mg PO BIDCC [facility] Last Admin: 12/20/17 08:36 Dose: 500 mg Admin: 12/19/17 16:41 Dose: 500 mg Pantoprazole Sodium (Protonix) 40 mg IV BIDAC [facility] Last Admin: 12/20/17 06:51 Dose: 40 mg Admin: 12/19/17 16:40 Dose: 40 mg Sodium Chloride (Saline Flush) 10 ml IV Q8 [facility] Last Admin: 12/20/17 14:54 Dose: 10 ml Admin: 12/20/17 06:06 Dose: Not Given Admin: 12/19/17 21:53 Dose: Not Given Shift Summary 12/20/17 05:22 Shift Summary by Isaac Vargas CPAP on @ HS; Gallbladder and stones removed; Lap sites and YOLY implant site clean, well approximated with shadow drainage; YOLY draining sanguineous; Not OOB this shift; Dietz with dark clear urine; NS 100 to RH; SCDs; appropriate affect Initialized on 12/20/17 05:22 - END OF NOTE
--- NOTE | 2017-12-28 14:39 | Operative Note ---
DATE OF OPERATION: 12/19/2017 PREOPERATIVE DIAGNOSIS: Cholelithiasis with cholecystitis. POSTOPERATIVE DIAGNOSIS: Acute and chronic cholecystitis with cholelithiasis. PROCEDURE: Laparoscopic cholecystectomy. SURGEON: Yuval Forrester M.D. FINDINGS: Severe inflammation of the gallbladder with obstructed cystic duct and with multiple large stones and purulence in the gallbladder. DESCRIPTION OF PROCEDURE: Under general anesthesia, the patient's abdomen was prepped and draped in the sterile field. Timeout procedure was carried out as per protocol. Supraumbilical midline incision was made and Veress needle was inserted. Abdomen was insufflated with 3.5 liters of CO2. A 12 mm port was placed and the laparoscope was placed. A severely inflamed gallbladder with a large stone was encountered. Under videoscopic guidance, a 12 mm port and two 5 mm ports were placed in the right subcostal region. The patient was positioned and the gallbladder was grasped. Because of the inflammation, it was decompressed with a Weck needle. It contained a large volume of yellow pus. After decompression, the gallbladder was grasped, and the infundibulum was dissected. I could not get good visualization, so a 12 mm port was placed in the left upper quadrant and a fan retractor was placed. I was then able to retract the distal tissue with retraction of the colon and the duodenum and the stomach inferomedially. With this, I was able to get a better view of the cystic duct. The cystic duct was dissected. It was transected using Endo SHELLEY stapler close to the gallbladder. Cystic artery branches were very friable, and they were clipped with multiple Hemoclips and divided. The gallbladder was from the infrahepatic bed using electrocautery and blunt dissection. It was placed in an Endopouch and retrieved. Irrigation was carried out. Hemostasis in the bed was achieved with electrocautery. YOLY drain was placed in the bed and brought out through the most lateral incision. CO2 was allowed to escape from the abdomen and the ports were all removed. Fascia at the umbilicus was closed with interrupted 0 Vicryl. Skin incisions were closed with lance. Drain was secured with 2-0 nylon. Dressings were placed. The patient was awakened, transferred to a bed and taken to the postanesthetic care unit in a stable, satisfactory condition. LCS:bimal Job ID: [id number] Doc ID: [id number] Yuval Forrester M.D.
== END 2017-12-20 17:20 | disposition home or self-care (01) | DRG 854 ==
LOC: MEDSUR 06:26 → ED 06:26 → MEDSUR 13:40
PROVIDERS: ADMIT Family Medicine Adult Medicine; ATTEND Family Medicine Adult Medicine

== ENCOUNTER 2023-01-17 18:44 | Inpatient (IN) ==
[2023-01-17 20:35] LABS: Hemoglobin 13.5 g/dL (13.7-17.5); Mean Cell Volume 94.8 fL (80.0-100.0); Mean Corpuscular HGB Conc 32.1 g/dL (31.0-36.0); Mean Platelet Volume 11.5 fL (8.8-12.5); Platelet Count 297 K/mcL (140-440); RBC 4.43 M/mcL (4.63-6.08)
[2023-01-17 20:58] LABS: Band Neutrophils % 5 % (0-10); Eosinophils % (Manual) 1 % (0-7); Lymphocytes % 16 % (15-49); Monocytes % (Manual) 4 % (1-12); Platelet Estimate NORMAL (Normal); RBC Morphology NORMAL (Normal); Segmented Neutrophils % 74 % (38-78)
[2023-01-17 21:03] LABS: ALT/SGPT 9 U/L (<40); AST/SGOT 12 U/L (<40); Albumin 3.8 gm/dL (3.2-5.2); Albumin/Globulin Ratio 1.1 (1.0-2.3); Alkaline Phosphatase 47 U/L (39-117); Bilirubin,Total 0.3 mg/dL (0.1-1.0); Blood Urea Nitrogen 19 mg/dL (8-23); Calcium 9.3 mg/dL (8.6-10.4); Carbon Dioxide 28 mmol/L (22-30); Chloride 101 mmol/L (96-108); Globulin 3.5 gm/dL (2.2-3.7); Glomerular Filtration Rate 49; Glucose 128 mg/dL (70-105); Thyroid Stimulating Hormone 2.05 uIU/mL (0.27-5.01)
[2023-01-17] MEDS ORDERED: ONDANSETRON 4 MG/2 ML VIAL IV PRN (21:38)
[2023-01-17] MEDS ORDERED: DEXTROSE 31 GM ORAL.SUSP PO PRN (21:38)
[2023-01-17] MEDS ORDERED: ACETAMINOPHEN 325 MG TABLET PO PRN (21:38)
[2023-01-17] MEDS ORDERED: DEXTROSE 50% 50 ML VIAL IV PRN (21:38)
[2023-01-17] MEDS: 0.9 % SODIUM CHLORIDE 10 ML SYRINGE IV SCH (21:50)
[2023-01-17] MEDS: 0.9 % SODIUM CHLORIDE 1,000 ML IV SCH (21:51)
[2023-01-17] MEDS: MEROPENEM 1 GM in 0.9 % SODIUM CHLORIDE 50 ML IV SCH (22:33)
[2023-01-17] MEDS: HEPARIN 5,000 UNIT/ML VIAL SQ SCH (22:35)
[2023-01-17] MEDS: DOCUSATE SODIUM 100 MG CAPSULE PO SCH (22:37)
[2023-01-17] MEDS: SENNOSIDES 1 TABLET PO SCH (22:37)
[2023-01-17] MEDS: INSULIN LISPRO 1 UNIT/0.01 ML UNIT SQ SCH (22:37)
[2023-01-18] MEDS: 0.9 % SODIUM CHLORIDE 1,000 ML IV SCH (05:41)
[2023-01-18] MEDS: MEROPENEM 1 GM in 0.9 % SODIUM CHLORIDE 50 ML IV SCH ×3 (05:41→21:54)
[2023-01-18] MEDS: 0.9 % SODIUM CHLORIDE 10 ML SYRINGE IV SCH ×3 (05:42→22:03)
[2023-01-18 06:46] LABS: Basophils # (Auto) 0.05 K/mcL (0.00-0.30); Basophils % (Auto) 0.6 % (0.0-2.0); Eosinophils # (Auto) 0.11 K/mcL (0.00-0.70); Eosinophils % (Auto) 1.2 % (0.0-7.0); Hematocrit 39.3 % (40.1-51.0); Hemoglobin 12.7 g/dL (13.7-17.5); Lymphocytes # (Auto) 1.59 K/mcL (1.50-4.80); Lymphocytes % (Auto) 17.7 % (15.5-49.0); Mean Corpuscular HGB Conc 32.3 g/dL (31.0-36.0); Monocytes # (Auto) 1.11 K/mcL (0.10-0.90); Monocytes % (Auto) 12.4 % (1.0-12.0); Neutrophils % (Auto) 67.9 % (38.0-78.0); Platelet Count 255 K/mcL (140-440); RBC 4.18 M/mcL (4.63-6.08)
[2023-01-18 07:11] LABS: ALT/SGPT 7 U/L (<40); AST/SGOT 10 U/L (<40); Albumin 3.1 gm/dL (3.2-5.2); Albumin/Globulin Ratio 1.1 (1.0-2.3); Alkaline Phosphatase 38 U/L (39-117); Bilirubin,Direct < 0.2 mg/dL (0-0.3); Bilirubin,Total 0.3 mg/dL (0.1-1.0); Blood Urea Nitrogen 18 mg/dL (8-23); Calcium 8.3 mg/dL (8.6-10.4); Carbon Dioxide 22 mmol/L (22-30); Chloride 103 mmol/L (96-108); Globulin 2.9 gm/dL (2.2-3.7); Glomerular Filtration Rate 54; Glucose 123 mg/dL (70-105); Lactate Dehydrogenase 149 U/L (135-225); Phosphorous 2.9 mg/dL (2.5-4.5); Triglycerides 89 mg/dL (<150); Uric Acid 6.9 mg/dL (2.5-8.0)
[2023-01-18] MEDS: INSULIN LISPRO 1 UNIT/0.01 ML UNIT SQ SCH ×4 (07:19→22:07)
[2023-01-18] MEDS: DOCUSATE SODIUM 100 MG CAPSULE PO SCH ×2 (08:00→21:56)
[2023-01-18] MEDS: HEPARIN 5,000 UNIT/ML VIAL SQ SCH ×2 (08:00→21:59)
[2023-01-18] MEDS ORDERED: traMADol 50 MG TABLET PO PRN (11:03)
[2023-01-18] MEDS: GABAPENTIN 300 MG CAPSULE PO SCH (21:56)
[2023-01-18] MEDS: SENNOSIDES 1 TABLET PO SCH (21:57)
[2023-01-19] MEDS: MEROPENEM 1 GM in 0.9 % SODIUM CHLORIDE 50 ML IV SCH ×3 (06:14→21:08)
[2023-01-19] MEDS: 0.9 % SODIUM CHLORIDE 10 ML SYRINGE IV SCH ×3 (06:17→21:08)
[2023-01-19 06:45] LABS: Basophils # (Auto) 0.04 K/mcL (0.00-0.30); Basophils % (Auto) 0.5 % (0.0-2.0); Eosinophils # (Auto) 0.31 K/mcL (0.00-0.70); Eosinophils % (Auto) 3.6 % (0.0-7.0); Hematocrit 40.6 % (40.1-51.0); Hemoglobin 13.2 g/dL (13.7-17.5); Lymphocytes # (Auto) 1.61 K/mcL (1.50-4.80); Lymphocytes % (Auto) 18.8 % (15.5-49.0); Mean Corpuscular HGB Conc 32.5 g/dL (31.0-36.0); Mean Platelet Volume 11.9 fL (8.8-12.5); Monocytes # (Auto) 1.17 K/mcL (0.10-0.90); Monocytes % (Auto) 13.6 % (1.0-12.0); Neutrophils % (Auto) 63.2 % (38.0-78.0); Platelet Count 261 K/mcL (140-440); RBC 4.32 M/mcL (4.63-6.08); Red Cell Distribution Width 13.7 % (11.5-14.5); WBC 8.6 K/mcL (4.5-11.0)
[2023-01-19 07:08] LABS: ALT/SGPT 7 U/L (<40); AST/SGOT 10 U/L (<40); Albumin 3.6 gm/dL (3.2-5.2); Albumin/Globulin Ratio 1.1 (1.0-2.3); Alkaline Phosphatase 41 U/L (39-117); Bilirubin,Direct < 0.2 mg/dL (0-0.3); Bilirubin,Total 0.4 mg/dL (0.1-1.0); Blood Urea Nitrogen 16 mg/dL (8-23); Calcium 8.9 mg/dL (8.6-10.4); Carbon Dioxide 24 mmol/L (22-30); Chloride 102 mmol/L (96-108); Globulin 3.2 gm/dL (2.2-3.7); Glomerular Filtration Rate 60; Glucose 117 mg/dL (70-105); Lactate Dehydrogenase 142 U/L (135-225); Phosphorous 2.7 mg/dL (2.5-4.5); Triglycerides 123 mg/dL (<150); Uric Acid 6.8 mg/dL (2.5-8.0)
[2023-01-19] MEDS: GABAPENTIN 300 MG CAPSULE PO SCH ×2 (08:35→21:06)
[2023-01-19] MEDS: METOPROLOL SUCCINATE 25 MG TAB.XL.24H PO SCH (08:35)
[2023-01-19] MEDS: DOCUSATE SODIUM 100 MG CAPSULE PO SCH ×2 (08:35→21:09)
[2023-01-19] MEDS: HEPARIN 5,000 UNIT/ML VIAL SQ SCH ×2 (08:36→21:11)
[2023-01-19] MEDS: INSULIN LISPRO 1 UNIT/0.01 ML UNIT SQ SCH ×4 (09:22→21:09)
[2023-01-19] MEDS: SENNOSIDES 1 TABLET PO SCH (21:09)
[2023-01-20] MEDS: MEROPENEM 1 GM in 0.9 % SODIUM CHLORIDE 50 ML IV SCH (05:17)
[2023-01-20] MEDS: 0.9 % SODIUM CHLORIDE 10 ML SYRINGE IV SCH (05:18)
[2023-01-20 07:32] LABS: ALT/SGPT 7 U/L (<40); AST/SGOT 11 U/L (<40); Albumin 3.4 gm/dL (3.2-5.2); Albumin/Globulin Ratio 1.1 (1.0-2.3); Alkaline Phosphatase 38 U/L (39-117); Bilirubin,Direct < 0.2 mg/dL (0-0.3); Bilirubin,Total 0.4 mg/dL (0.1-1.0); Blood Urea Nitrogen 15 mg/dL (8-23); Calcium 8.7 mg/dL (8.6-10.4); Carbon Dioxide 23 mmol/L (22-30); Chloride 102 mmol/L (96-108); Globulin 3.2 gm/dL (2.2-3.7); Glomerular Filtration Rate 66; Glucose 130 mg/dL (70-105); Lactate Dehydrogenase 158 U/L (135-225); Phosphorous 2.5 mg/dL (2.5-4.5); Triglycerides 112 mg/dL (<150); Uric Acid 6.3 mg/dL (2.5-8.0)
[2023-01-20] MEDS: INSULIN LISPRO 1 UNIT/0.01 ML UNIT SQ SCH ×2 (07:33→11:32)
[2023-01-20] MEDS: HEPARIN 5,000 UNIT/ML VIAL SQ SCH (08:35)
[2023-01-20] MEDS: DOCUSATE SODIUM 100 MG CAPSULE PO SCH (08:35)
[2023-01-20] MEDS: METOPROLOL SUCCINATE 25 MG TAB.XL.24H PO SCH (08:35)
[2023-01-20] MEDS: GABAPENTIN 300 MG CAPSULE PO SCH (08:35)
== END 2023-01-20 13:50 | DRG 690 ==
LOC: ED 18:44 → MEDSUR 21:35
PROVIDERS: ADMIT Internal Medicine; ATTEND Internal Medicine

== ENCOUNTER 2024-11-20 16:09 | Inpatient (IN) ==
[2024-11-20] MEDS: 0.9 % SODIUM CHLORIDE 1,000 ML IV ONE ×2 (17:10→17:57)
[2024-11-20 17:11] LABS: Basophils # (Auto) 0.03 K/mcL (0.00-0.30); Basophils % (Auto) 0.1 % (0.0-2.0); Eosinophils # (Auto) 0 K/mcL (0.00-0.70); Eosinophils % (Auto) 0 % (0.0-7.0); Hematocrit 38.9 % (40.1-51.0); Hemoglobin 12.5 g/dL (13.7-17.5); Lymphocytes # (Auto) 1.13 K/mcL (1.50-4.80); Lymphocytes % (Auto) 4.3 % (15.5-49.0); Mean Corpuscular HGB Conc 32.1 g/dL (31.0-36.0); Monocytes # (Auto) 1.11 K/mcL (0.10-0.90); Monocytes % (Auto) 4.2 % (1.0-12.0); Neutrophils % (Auto) 91.0 % (38.0-78.0); Platelet Count 295 K/mcL (140-440); RBC 4.11 M/mcL (4.63-6.08); WBC 26.3 K/mcL (4.5-11.0)
[2024-11-20 17:39] LABS: ALT/SGPT 27 U/L (<40); AST/SGOT 45 U/L (<40); Albumin 3.5 gm/dL (3.2-5.2); Albumin/Globulin Ratio 1.2 (1.0-2.3); Alkaline Phosphatase 54 U/L (39-117); Anion Gap 14.0 (8.0-16.0); Bilirubin,Total 0.6 mg/dL (0.1-1.0); Blood Urea Nitrogen 33 mg/dL (8-23); Calcium 9.0 mg/dL (8.6-10.4); Carbon Dioxide 21 mmol/L (22-30); Chloride 100 mmol/L (96-108); Globulin 3.0 gm/dL (2.2-3.7); Glucose 147 mg/dL (70-105); Potassium 4.3 mmol/L (3.3-5.1); Sodium 135 mmol/L (133-145); Thyroid Stimulating Hormone 2.56 uIU/mL (0.27-5.01)
[2024-11-20] MEDS: CEFEPIME 2 GM VIAL IV ONE (17:55)
[2024-11-20 18:47] LABS: Bacteria,Urine Many /hpf (0); Bilirubin,Urine Small mg/dL (Negative); Color,Urine Yellow; Glucose,Urine (UA) Negative (Negative); Ketones,Urine 15 mg/dL (Negative); Leukocyte Esterase,Urine Moderate /uL (Negative); PH,Urine 5.5 (5.0-9.0); Protein,Urine 30 mg/dL (Negative); Specific Gravity,Urine 1.020 (1.000-1.035); Urobilinogen,Urine Normal
[2024-11-20] MEDS ORDERED: SENNOSIDES 8.8 MG/5 ML ML PO PRN (21:06)
[2024-11-20] MEDS ORDERED: ACETAMINOPHEN 325 MG TABLET PO PRN (21:06)
[2024-11-20] MEDS ORDERED: IPRATROPIUM/ALBUTEROL 3 ML AMPUL.NEB NEB PRN (21:06)
[2024-11-20] MEDS ORDERED: DEXTROSE 31 GM ORAL.SUSP PO PRN (21:06)
[2024-11-20] MEDS ORDERED: ONDANSETRON 4 MG/2 ML VIAL IV PRN (21:06)
[2024-11-20] MEDS ORDERED: DEXTROSE 50% 50 ML VIAL IV PRN (21:06)
[2024-11-20] MEDS: 0.9 % SODIUM CHLORIDE 1,000 ML IV SCH (21:23)
[2024-11-20] MEDS: INSULIN LISPRO 1 UNIT/0.01 ML UNIT SQ SCH (21:23)
[2024-11-20] MEDS: 0.9 % SODIUM CHLORIDE 10 ML SYRINGE IV SCH (21:24)
[2024-11-20] MEDS ORDERED: SENNOSIDES 1 TABLET PO PRN (21:32)
[2024-11-20] MEDS: HEPARIN 5,000 UNIT/ML VIAL SQ SCH (22:03)
[2024-11-20] MEDS: PIPERACILLIN SODIUM/TAZOBACTAM 4.5 GM in DEXTROSE 5% IN WATER 50 ML IV ONE (22:03)
[2024-11-20] MEDS: DOCUSATE SODIUM 100 MG CAPSULE PO SCH (22:04)
[2024-11-20] MEDS: NOREPINEPHRINE BITARTRATE 8 MG in 0.9 % SODIUM CHLORIDE 242 ML IV SCH (22:04)
[2024-11-20] MEDS: 0.9 % SODIUM CHLORIDE 250 ML IV SCH (22:04)
[2024-11-20] MEDS: NOREPINEPHRINE 250 ML IV ONE (23:59)
[2024-11-21] MEDS: PIPERACILLIN SODIUM/TAZOBACTAM 3.375 GM in DEXTROSE 5% IN WATER 50 ML IV SCH (01:00)
[2024-11-21] MEDS: PIPERACILLIN SODIUM/TAZOBACTAM 4.5 GM in DEXTROSE 5% IN WATER 100 ML IV SCH (01:56)
[2024-11-21 05:57] LABS: Basophils # (Auto) 0.04 K/mcL (0.00-0.30); Basophils % (Auto) 0.2 % (0.0-2.0); Eosinophils # (Auto) 0.05 K/mcL (0.00-0.70); Eosinophils % (Auto) 0.3 % (0.0-7.0); Hematocrit 34.4 % (40.1-51.0); Hemoglobin 11.0 g/dL (13.7-17.5); Lymphocytes # (Auto) 1.72 K/mcL (1.50-4.80); Lymphocytes % (Auto) 9.6 % (15.5-49.0); Mean Corpuscular HGB Conc 32.0 g/dL (31.0-36.0); Monocytes # (Auto) 1.01 K/mcL (0.10-0.90); Monocytes % (Auto) 5.7 % (1.0-12.0); Neutrophils % (Auto) 83.9 % (38.0-78.0); Platelet Count 249 K/mcL (140-440); RBC 3.64 M/mcL (4.63-6.08); WBC 17.9 K/mcL (4.5-11.0)
[2024-11-21 06:21] LABS: ALT/SGPT 24 U/L (<40); AST/SGOT 41 U/L (<40); Albumin 3.1 gm/dL (3.2-5.2); Albumin/Globulin Ratio 1.1 (1.0-2.3); Alkaline Phosphatase 49 U/L (39-117); Anion Gap 10.0 (8.0-16.0); Bilirubin,Total 0.6 mg/dL (0.1-1.0); Blood Urea Nitrogen 33 mg/dL (8-23); Calcium 8.4 mg/dL (8.6-10.4); Carbon Dioxide 22 mmol/L (22-30); Chloride 105 mmol/L (96-108); Globulin 2.8 gm/dL (2.2-3.7); Glucose 173 mg/dL (70-105); Phosphorous 2.6 mg/dL (2.5-4.5); Potassium 3.9 mmol/L (3.3-5.1); Sodium 137 mmol/L (133-145)
[2024-11-21] MEDS: PANTOPRAZOLE 40 MG TABLET PO SCH (08:28)
[2024-11-21] MEDS: GABAPENTIN 400 MG CAPSULE PO SCH (10:10)
[2024-11-21] MEDS: FISH OIL 1,000 MG CAPSULE PO SCH (10:10)
[2024-11-21] MEDS ORDERED: NOREPINEPHRINE 250 ML IV PRN (10:42)
[2024-11-22 05:45] LABS: Basophils # (Auto) 0.04 K/mcL (0.00-0.30); Basophils % (Auto) 0.3 % (0.0-2.0); Eosinophils # (Auto) 0.35 K/mcL (0.00-0.70); Eosinophils % (Auto) 2.9 % (0.0-7.0); Hematocrit 33.7 % (40.1-51.0); Hemoglobin 10.8 g/dL (13.7-17.5); Lymphocytes # (Auto) 1.87 K/mcL (1.50-4.80); Lymphocytes % (Auto) 15.6 % (15.5-49.0); Mean Corpuscular HGB Conc 32.0 g/dL (31.0-36.0); Monocytes # (Auto) 0.77 K/mcL (0.10-0.90); Monocytes % (Auto) 6.4 % (1.0-12.0); Neutrophils % (Auto) 74.6 % (38.0-78.0); Platelet Count 238 K/mcL (140-440); RBC 3.53 M/mcL (4.63-6.08); WBC 12.0 K/mcL (4.5-11.0)
[2024-11-22 06:34] LABS: Phosphorous 2.6 mg/dL (2.5-4.5)
[2024-11-22 06:37] LABS: ALT/SGPT 22 U/L (<40); AST/SGOT 31 U/L (<40); Albumin 3.0 gm/dL (3.2-5.2); Albumin/Globulin Ratio 1.1 (1.0-2.3); Alkaline Phosphatase 40 U/L (39-117); Anion Gap 9.0 (8.0-16.0); Bilirubin,Total 0.4 mg/dL (0.1-1.0); Blood Urea Nitrogen 25 mg/dL (8-23); Calcium 8.6 mg/dL (8.6-10.4); Carbon Dioxide 21 mmol/L (22-30); Chloride 109 mmol/L (96-108); Globulin 2.8 gm/dL (2.2-3.7); Glucose 124 mg/dL (70-105); Potassium 4.1 mmol/L (3.3-5.1); Sodium 139 mmol/L (133-145)
[2024-11-22] MEDS ORDERED: TRIMETHOPRIM ONE (17:00)
[2024-11-22] MEDS ORDERED: POLYMYXIN B SULF ONE (17:00)
[2024-11-22] MEDS: AMOXICILLIN/POTASSIUM CLAV 875 MG TABLET PO SCH (17:01)
[2024-11-22] MEDS: POLYMYXIN B OU SCH (17:22)
[2024-11-22] MEDS: TRIMETHOPRIM OU SCH (17:22)
[2024-11-23 06:31] LABS: Basophils # (Auto) 0.04 K/mcL (0.00-0.30); Basophils % (Auto) 0.5 % (0.0-2.0); Eosinophils # (Auto) 0.42 K/mcL (0.00-0.70); Eosinophils % (Auto) 4.9 % (0.0-7.0); Hematocrit 34.3 % (40.1-51.0); Hemoglobin 11.1 g/dL (13.7-17.5); Lymphocytes # (Auto) 2.01 K/mcL (1.50-4.80); Lymphocytes % (Auto) 23.3 % (15.5-49.0); Mean Corpuscular HGB Conc 32.4 g/dL (31.0-36.0); Monocytes # (Auto) 0.50 K/mcL (0.10-0.90); Monocytes % (Auto) 5.8 % (1.0-12.0); Neutrophils % (Auto) 65.4 % (38.0-78.0); Platelet Count 251 K/mcL (140-440); RBC 3.61 M/mcL (4.63-6.08); WBC 8.6 K/mcL (4.5-11.0)
[2024-11-23 07:46] LABS: ALT/SGPT 20 U/L (<40); AST/SGOT 23 U/L (<40); Albumin 3.1 gm/dL (3.2-5.2); Albumin/Globulin Ratio 1.1 (1.0-2.3); Alkaline Phosphatase 42 U/L (39-117); Anion Gap 10.0 (8.0-16.0); Bilirubin,Direct < 0.2 mg/dL (0-0.3); Bilirubin,Total 0.3 mg/dL (0.1-1.0); Blood Urea Nitrogen 21 mg/dL (8-23); Calcium 9.0 mg/dL (8.6-10.4); Carbon Dioxide 22 mmol/L (22-30); Chloride 108 mmol/L (96-108); Globulin 2.8 gm/dL (2.2-3.7); Glucose 108 mg/dL (70-105); Phosphorous 3.5 mg/dL (2.5-4.5); Potassium 4.4 mmol/L (3.3-5.1); Sodium 140 mmol/L (133-145); Triglycerides 131 mg/dL (<150); Uric Acid 5.1 mg/dL (2.5-8.0)
[2024-11-23 10:13] LABS: Estimated Average Glucose(eAG) 128 mg/dL; Hemoglobin A1C 6.1 % Hgb (4.0-6.0)
[2024-11-23 12:37] VITALS: TEMP 97; O2SAT 100
== END 2024-11-23 13:12 | DRG 871 ==
LOC: ED 16:09 → ICU 20:40
PROVIDERS: ADMIT Internal Medicine; ATTEND Internal Medicine